=== PATIENT | male | born 1940 | race Caucasian/White ===

== ENCOUNTER 2017-05-25 06:36 | Day surgery (SDC) | payer MEDICARE, OTHER ==
[2017-05-25] MEDS ORDERED: ONDANSETRON HCL INJ/PF 4 MG/2 ML SDV ONE (07:13)
[2017-05-25] MEDS ORDERED: NALOXONE HCL INJ/PF 0.4 MG/1 ML SDV ONE (07:13)
[2017-05-25] MEDS ORDERED: GLUCAGON,HUMAN RECOMB 1 MG INJ ONE (07:14)
[2017-05-25] MEDS ORDERED: FLUMAZENIL INJ 0.5 MG/5 ML VIAL ONE (07:14)
[2017-05-25] MEDS ORDERED: EPINEPHRINE INJ 1 MG/10 ML DISP.SYRIN ONE (07:14)
[2017-05-25] MEDS: MIDAZOLAM 2 MG/2 ML INJ ONE ×3 (07:35→07:49)
[2017-05-25] MEDS: FENTANYL CITRATE INJ/PF 100 MCG/2 ML AMPUL ONE ×2 (07:36→07:39)
--- NOTE | 2017-05-25 08:27 | Operative Report ---
Operative Report DATE OF SURGERY: 05/25/17 PREOPERATIVE DIAGNOSIS: 1. Sigmoid diverticulosis disease. 2. History of colon polyps, remote POSTOPERATIVE DIAGNOSIS: Same with. 1. sigmoid diverticulosis. 2. multiple colon polyps including the sending colon, cecum, and splenic flexure. 3. Internal hemorrhoids OPERATION: 1. Total colonoscopy to cecum with photodocumentation. 2. Hot snare polypectomy of cecal and splenic flexure polyps. 3. Piecemeal cold forceps biopsy removal of ascending colon polyp SURGEON: ANNA MUJICA ANESTHESIA: Moderate Sedation TISSUE REMOVED OR ALTERED: Multiple polyps COMPLICATIONS: None ESTIMATED BLOOD LOSS: Scant INTRAOPERATIVE FINDINGS: See below PROCEDURE: Obtaining informed consent the patient was taken from the preoperative holding area to the main endoscopy suite where monitoring devices were attached to the patient. Plan and surgical timeout were conducted The patient was placed in the left lateral decubitus position with knees to chest. A perianal examination was performed. There was no visible or palpable anorectal pathology. Sphincter tone was felt to be normal. The flexible adult colonoscope was advanced through the anal rectal canal, all the way to the cecum. Visualization of the cecum was achieved and the ileocecal valve, the appendiceal orifice and transillumination of the anterior abdominal wall. This was an excellent study on the well-prepped bowel. There is a small punctate 2 mm polyp in the cecum which was removed using a hot snare device, medium heat with retention of the specimen. The colonoscope was withdrawn slowly and methodically checked and the mucosa carefully. There was a polyp in the ascending colon, very narrow, sessile, blending in with the surrounding mucosa. It was removed with the cold forceps biopsy in a piecemeal fashion and sent as a sending colon polyp. At about the level of the splenic flexure was a sessile polyp with some elevation approximately 4 mm in diameter photographed and removed with a hot snare device medium heat strength, specimen retrieved and polypectomy site stable without bleeding. There are moderate diverticular disease of the sigmoid colon. The scope was slowly withdrawn through the anal rectal canal. There were internal hemorrhoids nonthrombosed. Complete visualization of the rectum was achieved with photodocumentation. The scope was withdrawn to the patient's anus. The patient tolerated the procedure well and was taken to the recovery area in stable condition. Per surveillance guidelines, patient be an appropriate candidate for follow-up colonoscopy in 3 years, or sooner if symptoms develop
--- NOTE | 2017-05-25 08:31 | Discharge Summary ---
Discharge Summary (SDC) - Discharge Final Diagnosis: 1. Sigmoid diverticulosis 2. Internal hemorrhoids 3. Multiple colon polyps Date of Surgery: 05/25/17 Discharge Date: 05/25/17 Condition: Good Treatment or Instructions: [address] [address] POST ENDOSCOPY DISCHARGE INSTRUCTIONS 1. Diet: Start clear liquids that a regular diet as tolerated. 2. Resume all preoperative medications. All oral anticoagulants and aspirins can be resumed 24 hours after procedure. 3. If a polypectomy was performed some bleeding per rectum may occur. This should stop within 3 days. If not, please contact the office. 4. If you had a colonoscopy you may experience some bloating and delayed return of normal bowel function for several days, your regular bowel movement pattern should resume within a week. 5. Please contact [facility] at to make an appointment with Dr. Fried for 1 to 3 weeks following procedure. 6. If you have any questions or concerns regarding your care,treatment plan or follow up, please contact our office. 7. Per clinical guidelines we recommend you undergo a repeat colonoscopy in 3 years. Referrals: TIM MINOR MD [Primary Care Provider] - Discharge Diet: As Tolerated Discharge Activity: Activity As Tolerated Home Care Assistance: None Needed Report the Following to Your Physician Immediately: Shortness of Breath, Increase in Pain, Fever over 101 Degrees
[2017-05-25 09:13] VITALS: BP 134/70
== END 2017-05-25 09:15 | disposition home or self-care (01) ==
LOC: END 06:36
PROVIDERS: ATTEND Surgery
PROC: 0DBH8ZX Excision of Cecum, Via Natural or Artificial Opening Endoscopic, Diagnostic (ICD-10-PCS; 2017-05-25)
PROC: 0DBK8ZX Excision of Ascending Colon, Via Natural or Artificial Opening Endoscopic, Diagnostic (ICD-10-PCS; principal; 2017-05-25 07:30)
PROC: 0DBL8ZX Excision of Transverse Colon, Via Natural or Artificial Opening Endoscopic, Diagnostic (ICD-10-PCS; 2017-05-25 07:30)
DX: Z12.11 Encounter for screening for malignant neoplasm of colon (principal); D12.2 Benign neoplasm of ascending colon; D12.0 Benign neoplasm of cecum; K63.5 Polyp of colon; K57.30 Diverticulosis of large intestine without perforation or abscess without bleeding; K64.8 Other hemorrhoids; I49.9 Cardiac arrhythmia, unspecified; R10.31 Right lower quadrant pain; G89.29 Other chronic pain; Z87.891 Personal history of nicotine dependence; Z86.010 Personal history of colon polyps
CPT/HCPCS: 45380; 45385; 88305 ×2; J2250; J3010; J0171; J1610; J2310; J2405; J3490

== ENCOUNTER 2018-11-13 08:12 | Day surgery (SDC) | payer MEDICARE, OTHER ==
[~2018-11-13 08:12] MED LIST: BUPIVACAINE HCL 0.75% INJ/PF (7.5 MG/1 ML) 10 ML SDV OS PRN; KETOROLAC TROMETHAMINE 0.45% 4 DROP/0.4 ML DROPERETTE OS PRN; LIDOCAINE 4% INJ/PF (40 MG/ML) 5 ML AMPUL OS PRN; MIDAZOLAM 2 MG/2 ML INJ ONE
[2018-11-13] MEDS: BESIFLOXACIN HCL 0.6% OPH SUSP 5 ML BOTTLE OS PRN ×4 (09:14→10:23)
[2018-11-13] MEDS: CYCLOPENTOLATE 0.2%/PHENYLEPHRINE 1% OPH SOLN 2 ML OS PRN ×3 (09:14→09:34)
[2018-11-13] MEDS: TROPICAMIDE 1% OPH SOLN 3 ML OS PRN ×3 (09:14→09:34)
[2018-11-13] MEDS: TETRACAINE HCL 0.5% OPH SOLN 4 ML OS PRN ×3 (09:15→09:55)
[2018-11-13] MEDS: CHONDR SU A NA/HYALUR INTRAOC KIT (SURGICARE) ONE ×2 (10:09)
[2018-11-13] MEDS: EPINEPHRINE INJ/PF 1 MG/1 ML AMPULE ONE ×2 (10:09)
[2018-11-13] MEDS: LIDOCAINE 1% INJ-PF (10 MG/ML) 30 ML SDV ONE ×2 (10:09)
[2018-11-13] MEDS: DORZOLAMIDE HCL 2%/TIMOLOL MALEAT 0.5% OPH SOLN 10 ML OS PRN ×2 (10:23)
--- NOTE | 2018-11-13 14:08 | PDOC DISCHARGE SUMMARY ---
Discharge Summary[facility] Discharge Summary: DATE: 11/13/2018 FINAL DIAGNOSIS: CATARACT, LEFT EYE PROCEDURE: Cataract extraction with toric intraocular lens implant left eye HOSPITAL COURSE: The patient will be discharged to home. The patient is instructed to resume preoperative medications, take Tylenol as needed for discomfort, to keep the eye shielded, They should use the prescribed antibiotic, NSAID, and steroid at 3 PM and 8 PM, and to follow up in my office in 1 day.
--- NOTE | 2018-11-13 14:08 | Operative Report ---
Operative Report[facility] Operative Report: DATE OF SURGERY: 11/13/2018 PREOPERATIVE DIAGNOSIS: CATARACT, LEFT EYE. POSTOPERATIVE DIAGNOSIS: CATARACT, LEFT EYE. PROCEDURE PERFORMED: PHACOEMULSIFICATION WITH POSTERIOR CHAMBER INTRAOCULAR LENS, LEFT EYE. Intraocular Lens Model : S N 6AT3 20.5 Total Phaco Time: [] SURGEON: OUSMANE OLIVAS MD ANESTHESIA: TOPICAL WITH MAC. INDICATIONS FOR SURGERY: Difficulty with night driving PROCEDURE: The patient was brought to the Operating Room and placed in a seated position. a lid speculum was placed in the eye. the 0.180, and 270 degree axis of the cornea was marked with a toric marker. the patien was place in a reclining position. Following tetracaine drops, topical anesthesia was administered. This consisted of instrument wipe pledgets soaked in a solution of 4% Xylocaine mixed with 0.75% Marcaine in a 1:2 ratio. A 2 x 1 cm pledget was placed in the superior fornix. A 1 x 1 cm pledget was placed in the inferior fornix. The eye was patched shut for 5 minutes. The patch was removed. The eye was sterilely prepped and draped in the usual manner. Lid speculum was placed in the eye. The pledgets were removed. 4-0 black silk sutures were placed around the superior and the inferior rectus muscles to be used as traction. A conjunctival peritomy was made at the 10 o'clock position. Hemostasis was obtained with bipolar cautery. A posterior limbal groove was created using a crescent knife and dissected anteriorly towards the cornea. A sharp point blade was used to create a paracentesis site at the 2 o'clock position. 0.2 cc non preserved Lidocaine was injected into the anterior chamber. A 2.4 mm keratome was used to enter the anterior chamber through the groove. Viscoelastic was injected into the anteriorchamber. An anterior capsulotomy was performed using Utrata forceps in acapsulorrhexis fashion. Hydrodissection and hydrodelineation were performed. Phacoemulsification was performed in epycnt-nyv-msgauen technique. Following this, the I/A unit was used to remove residual cortex. Viscoelastic was injected into the capsular bag. The Intraocular lens was placed in the capsular bag. The 163 degree axis of the eye was marked using a toric marker and the previously marked sites as reference. The lens was centered at this axis. The I/A unit was used to remove residual viscoelastic. The wound was seen to be watertight under high and low pressure, and no sutures were placed. The intraocular lens was well centered. The pressure was adjusted in the eye to normal pressure. The 4-0 black silk sutures and lid speculum were removed. The eye was shielded after Besivance and Cosopt drops were placed. The patient tolerated the procedure well and was sent to the Recovery Room in good condition.
== END 2018-11-13 10:59 | disposition home or self-care (01) ==
LOC: SC 08:12
PROVIDERS: ATTEND Ophthalmology
DX: H25.813 Combined forms of age-related cataract, bilateral (principal); I10 Essential (primary) hypertension; H43.813 Vitreous degeneration, bilateral
CPT/HCPCS: 66984; J2250; J3490 ×5; A9270; J0171; V2787

== ENCOUNTER 2018-12-04 09:17 | Day surgery (SDC) | payer MEDICARE, OTHER ==
[~2018-12-04 09:17] MED LIST changes: +BUPIVACAINE HCL 0.75% INJ/PF (7.5 MG/1 ML) 10 ML SDV OD PRN; -BUPIVACAINE HCL 0.75% INJ/PF (7.5 MG/1 ML) 10 ML SDV OS PRN; +CHONDR SU A NA/HYALUR INTRAOC KIT (SURGICARE) ONE; +EPINEPHRINE INJ/PF 1 MG/1 ML AMPULE ONE; +KETOROLAC TROMETHAMINE 0.45% 4 DROP/0.4 ML DROPERETTE OD PRN; -KETOROLAC TROMETHAMINE 0.45% 4 DROP/0.4 ML DROPERETTE OS PRN; +LIDOCAINE 1% INJ-PF (10 MG/ML) 30 ML SDV ONE; +LIDOCAINE 4% INJ/PF (40 MG/ML) 5 ML AMPUL OD PRN; -LIDOCAINE 4% INJ/PF (40 MG/ML) 5 ML AMPUL OS PRN; -MIDAZOLAM 2 MG/2 ML INJ ONE
[2018-12-04] MEDS ORDERED: ONDANSETRON HCL INJ/PF 4 MG/2 ML SDV ONE (09:37)
[2018-12-04] MEDS ORDERED: MIDAZOLAM 2 MG/2 ML INJ ONE (09:37)
[2018-12-04] MEDS ORDERED: FENTANYL CITRATE INJ/PF 100 MCG/2 ML AMPUL ONE (09:38)
[2018-12-04] MEDS: TROPICAMIDE 1% OPH SOLN 15 ML OD PRN ×3 (10:04→10:28)
[2018-12-04] MEDS: CYCLOPENTOLATE 0.2%/PHENYLEPHRINE 1% OPH SOLN 2 ML OD PRN ×3 (10:04→10:28)
[2018-12-04] MEDS: BESIFLOXACIN HCL 0.6% OPH SUSP 5 ML BOTTLE OD PRN ×4 (10:05→11:21)
[2018-12-04] MEDS: TETRACAINE HCL 0.5% OPH SOLN 4 ML OD PRN ×2 (10:06→10:29)
[2018-12-04] MEDS: DORZOLAMIDE HCL 2%/TIMOLOL MALEAT 0.5% OPH SOLN 10 ML OD PRN ×2 (11:09→11:21)
--- NOTE | 2018-12-04 13:43 | Operative Report ---
Operative Report[facility] Operative Report: DATE OF SURGERY: 12/04/2018 PREOPERATIVE DIAGNOSIS: CATARACT, RIGHT EYE. POSTOPERATIVE DIAGNOSIS: CATARACT,RIGHT EYE. PROCEDURE PERFORMED: PHACOEMULSIFICATION WITH POSTERIOR CHAMBER INTRAOCULAR LENS, RIGHT EYE. Intraocular Lens Model : SN 6AT5 20.5 Total Phaco Time: 44 seconds SURGEON: OUSMANE OLIVAS MD ANESTHESIA: TOPICAL WITH MAC. INDICATIONS FOR SURGERY: Difficulty with night driving PROCEDURE: The patient was brought to the Operating Room and placed in a seated position. a lid speculum was placed in the eye. the 0.180, and 270 degree axis of the cornea was marked with a toric marker. the patien was place in a reclining position. Following tetracaine drops, topical anesthesia was administered. This consisted of instrument wipe pledgets soaked in a solution of 4% Xylocaine mixed with 0.75% Marcaine in a 1:2 ratio. A 2 x 1 cm pledget was placed in the superior fornix. A 1 x 1 cm pledget was placed in the inferior fornix. The eye was patched shut for 5 minutes. The patch was removed. The eye was sterilely prepped and draped in the usual manner. Lid speculum was placed in the eye. The pledgets were removed. 4-0 black silk sutures were placed around the superior and the inferior rectus muscles to be used as traction. A conjunctival peritomy was made at the 10 o'clock position. Hemostasis was obtained with bipolar cautery. A posterior limbal groove was created using a crescent knife and dissected anteriorly towards the cornea. A sharp point blade was used to create a paracentesis site at the 2 o'clock position. 0.2 cc non preserved Lidocaine was injected into the anterior chamber. A 2.4 mm keratome was used to enter the anterior chamber through the groove. Viscoelastic was injected into the anteriorchamber. An anterior capsulotomy was performed using Utrata forceps in acapsulorrhexis fashion. Hydrodissection and hydrodelineation were performed. Phacoemulsification was performed in gxjvva-hgu-zkslyrp technique. Following this, the I/A unit was used to remove residual cortex. Viscoelastic was injected into the capsular bag. The Intraocular lens was placed in the capsular bag. The 7 degree axis of the eye was marked using a toric marker and the previously marked sites as reference. The lens was centered at this axis. The I/A unit was used to remove residual viscoelastic. The wound was seen to be watertight under high and low pressure, and no sutures were placed. The intraocular lens was well centered. The pressure was adjusted in the eye to normal pressure. The 4-0 black silk sutures and lid speculum were removed. The eye was shielded after Besivance and Cosopt drops were placed. The patient tolerated the procedure well and was sent to the Recovery Room in good condition.
== END 2018-12-04 12:00 | disposition home or self-care (01) ==
LOC: SC 09:17
PROVIDERS: ATTEND Ophthalmology
DX: H25.811 Combined forms of age-related cataract, right eye (principal); Z96.1 Presence of intraocular lens; I10 Essential (primary) hypertension; Z79.899 Other long term (current) drug therapy
CPT/HCPCS: 00142; 66984; V2787; J2250; J3490 ×5; A9270; J0171; J3010; J2405; 142

== ENCOUNTER 2019-10-16 08:23 | Observation (INO) | payer MEDICARE, OTHER ==
--- NOTE | 2019-10-16 08:40 | EKG REPORT ---
SEVERITY:- ABNORMAL ECG - SINUS RHYTHM FIRST DEGREE AV BLOCK : Confirmed by: Kaylen Serrano MD 16-Oct-2019 08:39:49
[2019-10-16 08:48] LABS: INTERNATIONAL RATION (INR) 1.05; PARTIAL THROMBOPLASTIN TIME 28.2 SEC (23.5-35.8)
[2019-10-16 08:50] LABS: PROTHROMBIN TIME 13.7 SEC (11.4-15.4)
[2019-10-16 08:53] LABS: ABSOLUTE EOSINOPHILS # (AUTO) 0.1 10^3/uL (0.0-0.6); ABSOLUTE LYMPHOCYTES (AUTO) 1.1 10^3/uL (0.5-4.7); ABSOLUTE MONOCYTES (AUTO) 0.6 10^3/uL (0.1-1.4); ABSOLUTE NEUT (AUTO) 2.7 10^3/uL (1.7-8.2); BASOPHILS % (AUTO) 0.7 % (0-2); EOSINOPHILS % (AUTO) 2.8 % (0-6); HEMATOCRIT 48.2 % (37.9-51.0); HEMOGLOBIN 16.2 g/dL (13.5-17.0); LYMPHOCYTES % (AUTO) 25.2 % (13-45); MEAN CORPUSCULAR HEMOGLOBIN 28.8 pg (27.0-33.4); MEAN CORPUSCULAR HGB CONC 33.6 g/dL (32.0-36.0); MEAN CORPUSCULAR VOLUME 86 fl (80-97); MONOCYTES % (AUTO) 12.2 % (3-13); RED BLOOD COUNT 5.62 10^6/uL (4.35-5.55); RED CELL DISTRIBUTION WIDTH 14.6 % (11.5-14.0); SEGMENTED NEUTROPHILS % (AUTO) 59.1 % (42-78); TOTAL CELLS COUNTED % (AUTO) 100 %; WHITE BLOOD COUNT 4.5 10^3/uL (4.0-10.5)
[2019-10-16 09:03] LABS: ALBUMIN 4.3 g/dL (3.5-5.0); ALKALINE PHOSPHATASE 82 U/L (38-126); ANION GAP 7 (5-19); ASPARTATE AMINO TRANSFERASE 22 U/L (17-59); BLOOD UREA NITROGEN 25 mg/dL (7-20); CALCIUM 9.8 mg/dL (8.4-10.2); CARBON DIOXIDE 25 mmol/L (22-30); CHLORIDE 105 mmol/L (98-107); CREATINE KINASE 89 U/L (55-170); GLUCOSE 112 mg/dL (75-110); POTASSIUM 4.2 mmol/L (3.6-5.0); TOTAL PROTEIN 7.2 g/dL (6.3-8.2)
--- NOTE | 2019-10-16 09:03 | RADIOLOGY REPORT (SQ) ---
EXAM DESCRIPTION: CHEST SINGLE VIEW IMAGES COMPLETED DATE/TIME: 10/16/2019 8:55 am REASON FOR STUDY: stroke workup COMPARISON: None. EXAM PARAMETERS: NUMBER OF VIEWS: One view. TECHNIQUE: Single frontal radiographic view of the chest acquired. RADIATION DOSE: NA LIMITATIONS: None. FINDINGS: LUNGS AND PLEURA: No opacities, masses or pneumothorax. No pleural effusion. MEDIASTINUM AND HILAR STRUCTURES: No masses. Contour normal. HEART AND VASCULAR STRUCTURES: Heart normal in size. Normal vasculature. BONES: No acute findings. HARDWARE: None in the chest. OTHER: No other significant finding. IMPRESSION: NO ACUTE RADIOGRAPHIC FINDING IN THE CHEST. TECHNICAL DOCUMENTATION: JOB ID: [id number] 2010 [employer]- All Rights Reserved Reading location - IP/workstation name: [email or web address]
--- NOTE | 2019-10-16 09:04 | RADIOLOGY REPORT (SQ) ---
EXAM DESCRIPTION: CT HEAD WITHOUT IMAGES COMPLETED DATE/TIME: 10/16/2019 8:48 am REASON FOR STUDY: right arm clumbsy COMPARISON: None. TECHNIQUE: Axial images acquired through the brain without intravenous contrast. Images reviewed wi th bone, brain and subdural windows. Additional sagittal and coronal reconstructions were generated. Images stored on PACS. All CT scanners at this facility use dose modulation, iterative reconstruction, and/or weight based d osing when appropriate to reduce radiation dose to as low as reasonably achievable (ALARA). [facility]: Dose Right [facility]: CareDose [facility]: Dose Right [facility]: Teradose 4D [facility]: [employer] RADIATION DOSE: CT Rad equipment meets quality standard of care and radiation dose reduction techniq ues were employed. CTDIvol: 48.6 mGy. DLP: 930 mGy-cm. mGy. LIMITATIONS: None. FINDINGS: VENTRICLES: Normal size and contour. CEREBRUM: No intracranial hemorrhage. Subtle hypoattenuation within the left basal ganglia and insul a. More focal areas of hypodensity within the left caudate head and thalamus. No significant mass e ffect or midline shift. Remaining arevalo-white differentiation is preserved. There is questionable hyp erdense left MCA sign CEREBELLUM: No masses. No hemorrhage. No alteration of density. No evidence for acute infarction. EXTRAAXIAL SPACES: No fluid collections. No masses. ORBITS AND GLOBE: No intra- or extraconal masses. Normal contour of globe without masses. CALVARIUM: No fracture. PARANASAL SINUSES: Minimal mucosal thickening within the ethmoid air cells. No fluid or mucosal thi ckening. SOFT TISSUES: No mass or hematoma. OTHER: No other significant finding. IMPRESSION: Subtle areas of hypoattenuation involving the left basal ganglia and insula suggestive o f infarct. Questionable dense left MCA sign. Consider MRI for further characterization. EVIDENCE OF ACUTE STROKE: YES. LEFT MCA. COMMENT: Pertinent positive or negative findings of the imaging study reported as a CRITICAL EXAM t harsh TRENT MD at08:56 on 10/16/2019. Category of Critical Exam: Age-indeterminate infarct. Quality ID # 436: Final reports with documentation of one or more dose reduction techniques (e.g., Au tomated exposure control, adjustment of the mA and/or kV according to patient size, use of iterative reconstruction technique) TECHNICAL DOCUMENTATION: JOB ID: [id number] [employer]- All Rights Reserved Reading location - IP/workstation name: [email or web address]
--- NOTE | 2019-10-16 09:11 | ER Document Report ---
Entered by BERT HIGUERA SCRIBE 10/16/19 0902 Acting as scribe for:VINH TRENT MD ED Neuro Symptoms/Deficit - General Chief Complaint: Arm Pain Stated Complaint: ARM PAIN Time Seen by Provider: 10/16/19 08:26 Mode of Arrival: Medic Information source: Patient Notes: This 79-year-old male patient presents to the emergency department today complaining that his right arm feels "clumsy" which he states began between 6:00 AM and 6:30 AM this morning. Patient states he woke up at 3:00 AM this morning but this sensation was not present at that time. Patient states when the sensation began he was sitting in a chair. In an attempt to further clarify what the patient meant by "clumsy" he reports that it was "not numb, just felt funny". at bedside mentions that he was unable to sign his name for EMS. Eventually patient is able to state that he is having difficulty with fine motor skills. TRAVEL OUTSIDE OF THE [place] 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 Bilateral cataract repair. - Immunizations Hx Diphtheria, Pertussis, Tetanus Vaccination: No - UNK Hx Pneumococcal Vaccination: 03/20/10 Review of Systems - Review of Systems Constitutional: No symptoms reported EENT: No symptoms reported Cardiovascular: No symptoms reported Respiratory: No symptoms reported Gastrointestinal: No symptoms reported Genitourinary: No symptoms reported Male Genitourinary: No symptoms reported Musculoskeletal: No symptoms reported Skin: No symptoms reported Hematologic/Lymphatic: No symptoms reported Neurological/Psychological: Other - right arm "felt funny" which he further describes as difficulty with fine motor skills. denies: Numbness, Tingling -: Yes All other systems reviewed and negative Physical Exam - Vital signs Vitals: Temp BP Pulse Ox 98.1 F 142/69 H 96 10/16/19 08:26 10/16/19 08:26 10/16/19 08:26 - Notes Notes: Physical Exam: General: Alert, appears well. HEENT: Normocephalic. Atraumatic. PERRL. Extraocular movements intact. Oropharynx clear. Neck: Supple. Non-tender. No carotid bruits. Respiratory: No respiratory distress. Clear and equal breath sounds bilaterally. Cardiovascular: Regular rate and rhythm. Abdominal: Normal Inspection. Non-tender. No distension. Normal Bowel Sounds. Back: No gross abnormalities. Extremities: Moves all four extremities. Upper extremities: Normal inspection. Normal ROM. Lower extremities: Normal inspection. No edema. Normal ROM. Neurological: Normal cognition. Normal speech. Maacix-yr-chku test intact on the left. Past-pointing with rwrycn-xf-ezjk test on the right side. Cranial nerves II through XII were intact with normal eye motion, normal tongue protrusion, symmetrical smiling. There was no weakness to the lower extremities, or ataxia. There was no weakness to the upper extremities, although there was very slight ataxia to the right upper extremity. There was no sensory deficit to any of the extremities. Psychological: Normal affect. Normal Mood. Skin: Warm. Dry. Normal color. Course - Re-evaluation Re-evalutation: 10/16/19 12:06 The patient's only neurologic symptom was the loss of fine coordination to his right upper extremity. The MRI showed acute or subacute injury in the left anterior cerebral artery distribution. There was also suggestion of old infarct in the left side. After the patient returned from MRI, he was reevaluated and he stated that it felt like his hand coordination was improving and was not quite back to normal but was better than it had been previously. The MRI findings, were discussed with the patient and his spouse. The risk benefits of TPA were discussed including up to 6% chance of intracranial hemorrhage. Given the minimal symptoms he still is having, and the amount of improvement that has occurred, the patient and spouse agreed to not use TPA. 10/16/19 12:15 After the admission was started, the informed the nurse that they had spoken with their parcel post carrier at [facility] and wanted to be transferred to [facility]. I called the [facility] transfer line and informed them of the requests. They were going to contact the patient's parcel post carrier for clarification and get back to me. 10/16/19 14:02 Dr. Pierce from [facility] called back and discussed case. She felt it was a lateral move in there with nothing they could offer her that was not available at this facility. Additionally there were several transfers ahead of this one that had not received bed assignment yet. Due to all of these issues, she declined the transfer. - Vital Signs Vital signs: Temp Pulse Resp BP Pulse Ox 98.1 F 54 L 15 136/52 H 98 10/16/19 08:26 10/16/19 17:31 10/16/19 17:31 10/16/19 17:31 10/16/19 17:31 - Laboratory Result Diagrams: 10/16/19 08:34 10/16/19 08:34 Laboratory results interpreted by me: 10/16/19 10/16/19 08:34 08:34 RBC 5.62 H RDW 14.6 H Plt Count 95 L BUN 25 H Est GFR (MDRD) Non-Af 57 L Glucose 112 H - Diagnostic Test Radiology reviewed: Image reviewed, Reports reviewed - CT scan of the head shows subtle areas of hypoattenuation involving the left basal ganglia and insula suggestive of infarct. There is a questionable dense left MCA sign. Consider MRI for further characterization. MRI of the head showed a small foci of restricted diffusion within the subcortical white matter of the left parieto- occipital parenchyma consistent with acute to subacute ischemic injury in the left anterior cerebral artery territory. The left precentral gyrus subcortical T2 prolongation is consistent with sequelae of previous ischemic injury. Otherwise normal appearance of the brain. - EKG Interpretation by Me EKG shows normal: Sinus rhythm, Delta, Intervals, QRS Complexes, ST-T Waves Rate: Normal - 57 Heart block present: 1st Degree When compared to previous EKG there are: No significant change - Consults Dr. Islas Consulted provider: will come to ER - IMCU admit, Plavix and Aspirin Critical Care Note - Critical Care Note Total time excluding time spent on procedures (mins): 40 Comments: At least 40 minutes spent evaluating the patient and multiple repeat examinations. Reviewing lab work, past medical history, CT scan and then MRI recommendations. Reviewing MRI scan results and discussing with the on-call hospitalist on 2 separate occasions. Time spent discussing the case with the family and the risks and benefits of TPA. Later considerable time spent on admission/management of the patient as they were requesting to go to [facility], and were inferring that his parcel post carrier wanted him transferred there. This turned out not to be true. I did discuss the case with the hospitalist at [facility] and she declined to accept a lateral transfer for management that could be provided at this facility. Discharge - Discharge Clinical Impression: Acute CVA (cerebrovascular accident) Condition: Stable Disposition: ADMITTED INPATIENT Admitting Provider: Janel (Hospitalist) Unit Admitted: IMCU I personally performed the services described in the documentation, reviewed and edited the documentation which was dictated to the scribe in my presence, and it accurately records my words and actions.
[2019-10-16 09:12] LABS: PLATELET COUNT 95 10^3/uL (150-450)
--- NOTE | 2019-10-16 10:50 | RADIOLOGY REPORT (SQ) ---
EXAM DESCRIPTION: MRI HEAD WITHOUT IMAGES COMPLETED DATE/TIME: 10/16/2019 10:30 am REASON FOR STUDY: right arm clumbsy, CT suggests L MCA COMPARISON: Noncontrast head CT 10/16/2019 TECHNIQUE: Multiplanar imaging includes non-contrasted T1, T2, FLAIR, and diffusion with ADC map seq uences. Images stored on PACS. LIMITATIONS: None. FINDINGS: ANATOMY: No anomalies. Normal vascular flow voids. Pituitary fossa normal. CSF SPACES: Normal in size and contour. No hemorrhage. CEREBRUM: The sulci and gyri are normal in size and contour for age. Subcortical T2 prolongation is seen within the left precentral gyrus, consistent with sequela of previous ischemic injury. Few scat tered foci of T2 prolongation seen within the white matter are nonspecific, but may represent sequela of microvascular ischemic injury. Scattered foci of subcortical restricted diffusion with associate d faint T2 prolongation on FLAIR imaging is seen of the left parietooccipital lobe in a left anterior cerebral artery distribution. Incidental note is made of prominent per caliber been perivascular sp aces within the basal ganglia. POSTERIOR FOSSA: No signal alteration. No hemorrhage. No edema, masses or mass effect. Internal amrita tory canals, cerebello-pontine angles, mastoids normal. DIFFUSION IMAGING: As above. ORBITS: No masses. Globes normal. PARANASAL SINUSES: No fluid levels. Mucosa normal. OTHER: No other significant finding. IMPRESSION: Given faint correlative signal abnormality on FLAIR imaging, small foci of restricted di ffusion seen within the subcortical white matter of the left parietooccipital parenchyma is consisten t with acute to subacute ischemic injury in the left anterior cerebral artery territory. Left precen tral gyrus subcortical T2 prolongation is consistent with sequela of previous ischemic injury. Other blank normal appearance of the brain. EVIDENCE OF ACUTE STROKE: YES. LEFT ROSANNA TECHNICAL DOCUMENTATION: JOB ID: [id number] 2010 [employer]- All Rights Reserved Reading location - IP/workstation name: [email or web address]
[2019-10-16 11:11] LABS: APPEARANCE,URINE SLIGHTLY-CLOUDY; BILIRUBIN,URINE NEGATIVE (NEGATIVE); COLOR,URINE STRAW; GLUCOSE, URINE NEGATIVE (NEGATIVE); KETONES,URINE NEGATIVE (NEGATIVE); LEUKOCYTE ESTERASE,URINE NEGATIVE (NEGATIVE); NITRITE,URINE NEGATIVE (NEGATIVE); PROTEIN,URINE NEGATIVE (NEGATIVE); URINE SPECIFIC GRAVITY 1.008; UROBILINOGEN,URINE NEGATIVE mg/dL (<2.0)
--- NOTE | 2019-10-16 11:11 | ER Document Report ---
ED NIH Stroke Scale - NIH Stroke Scale *: 1. NIH scale should be completed with appropriate accompanying assessment tools. *: 2. The NIH should reflect what the patient is capable of doing and should not be coached by the clinician. 1a. Level of Consciousness: 0=Alert;keenly responsive -: 1=Drowsy -: 2=Obtunded -: 3=Coma/unresponsive or reflex to noxious stimuli. 1a. Responses: 0 1b. Orientation Questions: a. What month is it? -: b. How old are you? -: 0=Answers both questions correctly. -: 1=Answers one question correctly or patient is intubated or has orotracheal trauma. -: 2=Answers neither question correctly. 1b. Responses: 0 1c. Response to commands: a. Open and close eyes? -: b. Quality Assurance Director and release hand? -: Credit is given despite weakness. Demonstration of task is permitted. Substitute command if hands cannot be used. -: 0=Performs both tasks correctly -: 1=Performs one task correctly -: 2=Performs neither task correctly 1c. Responses: 0 2. Gaze: Establish eye contact and instruct patient to "Follow my finger" -: 0=Normal -: 1=Partial gaze palsy. Gaze is abnormal in one or both eyes, but where forced deviation or total gaze paresis is not present. -: 2=Forced deviation or total gaze paresis. 2. Responses: 0 3. Visual Kim: Sees fingers in all four quadrants. -: 0=No visual loss. -: 1=Partial hemianopsia. -: 2=Complete hemianopsia. -: 3=Bilateral hemianopsia (including Cortical blindness) 3. Responses: 0 4. Facial Movement: Instruct patient to: -: a. Show me your teeth -: b. Raise your eyebrows -: c. Close your eyes -: d. Smile -: 0=Normal symmetrical movement -: 1=Minor paralysis (flattened nasolabial fold, asymmetry on smiling). -: 2=Partial paralysis (total or near total paralysis of lower face). -: 3=Complete paralysis of upper and lower face 4. Responses: 0 5. Motor functions (left arm): Alternate sides and extend each arm with palms down (90 degrees if sitting or 45 degrees for supine). -: 0=No drift;limb holds for full 10 seconds. -: 1=Drift; limb holds but drifts down before full 10 seconds, but does not hit bed. -: 2=Some effort against gravity; limb cannot get to or maintain position. -: 3=No effort against gravity; limb falls. -: 4=No movement. -: UN=Amputation, joint fusion, explain in comments. 5. Responses (left arm): 0 5. Motor Functions (right arm): Alternate sides and extend each arm with palms down (90 degrees if sitting or 45 degrees for supine). -: 0=No drift;limb holds for full 10 seconds. -: 1=Drift; limb holds but drifts down before full 10 seconds, but does not hit bed. -: 2=Some effort against gravity; limb cannot get to or maintain position. -: 3=No effort against gravity; limb falls. -: 4=No movement. -: UN=Amputation, joint fusion, explain in comments. 5. Responses (right arm): 0 6. Motor Functions (left leg): With patient lying supine, alternate sides and extend each leg (30 degrees always while supine). -: 0=No drift, leg holds position for full 5 seconds -: 1=Drift; leg falls before full 5 seconds but does not hit bed. -: 2=Some effort against gravity, leg falls to bed but some effort against gravity. -: 3=No effort against gravity, leg falls to bed immediately. -: 4=No movement. -: UN=Amputation, joint fusion; explain in comments. 6. Responses (left leg): 0 6. Motor Functions (right leg): With patient lying supine, alternate sides and extend each leg (30 degrees always while supine). -: 0=No drift, leg holds position for full 5 seconds -: 1=Drift; leg falls before full 5 seconds but does not hit bed. -: 2=Some effort against gravity, leg falls to bed but some effort against gravity. -: 3=No effort against gravity, leg falls to bed immediately. -: 4=No movement. -: UN=Amputation, joint fusion; explain in comments. 6. Responses (right leg): 0 7. Limb Ataxia: With eyes open instruct patient to: -: a. "Touch your finger to your nose". -: b. "Touch your heel to your pandya" -: 0=Absent -: 1=Present in one limb. -: 2=Present in two limbs. -: UN=Amputation or joint fusion; explain in comments. 7. Responses: 1 7. If ataxia present choose as appropriate: Right arm 8. Sensory: Test sensation using pinprick or noxious stimuli. Test as many body parts as possible. -: 0=Normal;no sensory loss -: 1=Mile to moderate sensory loss (patient feels pin prick but is less sharp on affected side). -: 2=Severe or total sensory loss. 8. Responses: 0 9. Best Language: Instruct patient to: -: a. "Describe what you see in this picture." -: b. "Name the items in this picture." -: c. "Read these sentences." -: 0=No aphasia, normal -: 1=Mild to moderate aphasia. -: 2=Severe aphasia -: 3=Mute, global aphasia, no usable speech or auditory comprehension. 9. Responses: 0 10. Articulation, Dysarthia: Instruct patient to: -: "Read these words" or "Repeat these words" -: 0=Normal -: 1=Mild to moderate; patient may slur some words but can be understood without difficulty. -: 2=Severe; patients speech so slurred as to be unintelligible in the absence of dysphasia. -: UN=Intubated or other physical barrier, explain in comments. 10. Responses: 0 11. Extinction or inattention: 0=No abnormality -: 1= Visual, tactile, auditory, spatial, or personal inattention or extinction to bilateral simulation in one or the sensory modalities. -: 2=Profound indra-inattention or indra-inattention to more than one modality; does not recognize own hand. 11. Responses: 0 Total Score: 1
[2019-10-16] MEDS ORDERED: ASPIRIN 81 MG TABLET, CHEWABLE PO ONE (11:21)
[2019-10-16] MEDS ORDERED: CLOPIDOGREL BISULFATE 75 MG TABLET PO ONE (11:21)
--- NOTE | 2019-10-16 12:06 | ER Document Report ---
ED Alteplase Inc/Exc Criteria - Inclusion Criteria: 1: Patient presented to ED within 3 hours of acute ischemic stroke symptom onset? -: Yes 2: Did baseline CT exclude intracranial hemorrhage and/or other risk factors? -: Yes 3: Is the age of the patient 18 years of age or greater? -: Yes : If any of the above questions are answered "NO" then stop, patient is not a candidate for Alteplase, : If all of the above questions are answered "YES" then continue with Exclusion Criteria. - Exclusion Criteria: 1: Is there evidence of intracranial hemorrhage on baseline CT? -: No 2: Is there suspicion of subarachnoid hemorrhage (even if CT negative)? -: No 3: Is there a history of serious head trauma, recent previous stroke or MN within 3 months? -: No 4: Does the patient have a clinical presentation consistent with MN or post-MN pericarditis? -: No 5: Is there history of intracranial hemorrhage? -: No 6: On repeated measurement is Systolic BP greater than 185mmHg or Diastolic BP greater that 110 mmHg and is aggressive treatment needed to reduce blood pressure to these limits (e.g. constant infusion of an anti-hypertensive)? -: No 7: Did the patient awake with stroke symptoms? -: No 8: Has the patient had a lumbar puncture or an arterial puncture at a non- compressile site within 7 days? -: No 9: With in the last 14 days did the patient have surgery or major trauma? -: No 10: Is the patient or less than 2 weeks? -: No 11: Was there any active bleeding or acute trauma? -: No 12: Does the patient have intracranial neoplasm, arteriovenous malformation or aneurysm? -: No 13: Does the patient have abnormal glucose (less than 50 or greater than 400mg/dl)? Record glucose in Comment. -: No 14: Patient has rapidly improving symptoms at the time Alteplase is to be Administered. -: Yes 15: Does the patient have any risks for bleeding, including but not limited to: a.: Current use of Coumadin with PT greater than 15 seconds or INR greater than 1.7. b.: Current use of Pradaxa (Dabigatran). c.: Heparin administereed within the past 48 hours and PTT elevated. d.: Platelet count less than 100,000/mm. e.: Major surgery or serious trauma within 14 days. f.: Gastrointestinal or gynecological urinary bleeding within 14 days. g.: Myocardial Infarction (MN) within 3 months. -: No : If the answer to any of the above questions is "YES" then stop, the patient is not a candidate for Alteplase. : If the answer to all of the above questions is "NO" then the patient may be eligible for the Administration of Alteplase. : If the patient is noted to have seizure activity at onset of Stroke symptoms; Consult Neurologist for further evaluation. - The patient is: -: Included and is eligible to receive Alteplase. *Initiate bed placement at higher level of care* --: No Reviewed risks & benefits of thrombolytic therapy: I have reviewed the risks and benefits of thrombolytic therapy with the patient and/or his/her family. Yes -: Excluded and not eligible to receive Alteplase for the above exclusions. --: Yes -: Excluded and not eligible to receive Alteplase for other reasons (specify in comments): - Diagnosis of TIA: -: Patient presented with transient symptoms that are now resolved and no other neurologic findings are currently present. List symptoms in comments. -: Patient is NOT a candidate for tPA. -: ____(put name in comment) has been consulted for admission and continued evaluation of risk factor assessment.
[2019-10-16] MEDS ORDERED: ONDANSETRON HCL INJ/PF 4 MG/2 ML SDV IV PRN (15:50)
[2019-10-16] MEDS ORDERED: ACETAMINOPHEN 325 MG TABLET PO PRN (15:50)
--- NOTE | 2019-10-16 16:16 | PDOC H&P ---
History of Present Illness Admission Date/PCP: 10/16/19 11:44 TIM MINOR MD Patient complains of: Discoordination of right hand History of Present Illness: DAREK MELLO is a 79 year old male with a history of hypertension and " irregular heart rhythm", who presents to the hospital with complaints of right- hand ataxia which started this morning around 6 AM. He had no other symptoms besides this. He denied any visual deficits, slurred speech, or other weakness in his extremities. He also denies any history of previous strokes. In the ER, head CT scan was unremarkable but MRI of the brain revealed acute CVA. Was evaluated by the ER doctor and patient declined TPA after receiving explanation of risks and benefits from the ER physician. NIH score on presentation was 1. Currently being admitted for work-up of CVA. Past Medical History Cardiac Medical History: Reports: Hypertension - CONTROLLED/MEDICATED Denies: Coronary Artery Disease, Myocardial Infarction Pulmonary Medical History: Denies: Asthma, Bronchitis, Chronic Obstructive Pulmonary Disease (COPD), Pneumonia Neurological Medical History: Denies: Seizures Malignancy Medical History: Reports: Skin Cancer - Squamous cell GI Medical History: Denies: Hepatitis, Hiatal Hernia Musculoskeltal Medical History: Denies: Arthritis Hematology: Denies: Anemia, Sickle Cell Disease Past Surgical History Past Surgical History: Reports: Other - Multiple squamous cell lesions removed. Bilateral cataract repair. Denies: Pacemaker Social History Lives with: Spouse/Significant other Smoking Status: Never Smoker Frequency of Alcohol Use: Social Hx Recreational Drug Use: No - Advance Directive Resuscitation Status: Full Code Family History Family History: Hypertension Parental Family History Reviewed: Yes Children Family History Reviewed: NA Sibling(s) Family History Reviewed.: Yes Medication/Allergy Home Medications: Diltiazem HCl [Cardizem Cd 240 mg Capsule.cr] 180 cap PO DAILY 05/12/14 Lisinopril/Hydrochlorothiazide [Lisinopril-Hctz 10-12.5 mg Tab] 1 each PO DAILY 10/16/19 Allergies/Adverse Reactions: No Known Allergies Allergy (Verified 11/13/18 09:18) Review of Systems Constitutional: ABSENT: fever(s), headache(s) Eyes: ABSENT: visual disturbances Ears: ABSENT: hearing changes Nose, Mouth, and Throat: ABSENT: headache(s) Cardiovascular: ABSENT: palpitations Respiratory: ABSENT: dyspnea Gastrointestinal: ABSENT: abdominal pain, nausea, vomiting Genitourinary: ABSENT: difficulty urinating, dysuria Integumentary: ABSENT: diaphoresis Neurological: PRESENT: lack of coordination. ABSENT: abnormal gait, abnormal speech, confusion, dizziness, paresthesias, tingling Endocrine: ABSENT: polyuria Hematologic/Lymphatic: ABSENT: easy bleeding Allergic/Immunologic: ABSENT: seasonal rhinorrhea Physical Exam Vital Signs: Temp Pulse Resp BP Pulse Ox 98.1 F 55 L 22 H 135/62 H 98 10/16/19 08:26 10/16/19 09:17 10/16/19 15:31 10/16/19 15:31 10/16/19 15:31 Intake & Output 10/15/19 10/16/19 10/17/19 06:59 06:59 06:59 Weight 81.647 kg General appearance: PRESENT: no acute distress, cooperative Eye exam: PRESENT: EOMI Neck exam: ABSENT: JVD Respiratory exam: PRESENT: clear to auscultation mikal, unlabored. ABSENT: tachypnea, wheezes Cardiovascular exam: PRESENT: RRR, +S1, +S2. ABSENT: tachycardia GI/Abdominal exam: PRESENT: soft. ABSENT: rebound, rigid, tenderness Extremities exam: ABSENT: pedal edema Neurological exam: PRESENT: alert, awake, oriented to person, oriented to place, oriented to time, oriented to situation, ataxia - right hand only on finger to nose test, CN II-XII grossly intact. ABSENT: motor sensory deficit, aphasic Psychiatric exam: PRESENT: appropriate affect, normal mood. ABSENT: agitated, anxious Focused psych exam: ABSENT: pressured speech Skin exam: ABSENT: jaundice Results Laboratory Results: 10/16/19 08:34 10/16/19 08:34 10/16/19 10/16/19 10/16/19 08:34 08:34 10:44 WBC 4.5 RBC 5.62 H Hgb 16.2 Hct 48.2 MCV 86 MCH 28.8 MCHC 33.6 RDW 14.6 H Plt Count 95 L Seg Neutrophils % 59.1 Sodium 137.1 Potassium 4.2 Chloride 105 Carbon Dioxide 25 Anion Gap 7 BUN 25 H Creatinine 1.23 Est GFR ( Amer) > 60 Glucose 112 H Calcium 9.8 Total Bilirubin 1.0 AST 22 Alkaline Phosphatase 82 Total Protein 7.2 Albumin 4.3 Urine Color STRAW Urine Appearance SLIGHTLY-CLOUDY Urine pH 6.0 Ur Specific [place] 1.008 Urine Protein NEGATIVE Urine Glucose (UA) NEGATIVE Urine Ketones NEGATIVE Urine Blood NEGATIVE Urine Nitrite NEGATIVE Ur Leukocyte Esterase NEGATIVE Urine WBC (Auto) 1 Urine RBC (Auto) 1 10/16/19 10/16/19 08:34 08:34 Creatine Kinase 89 Troponin I < 0.012 Impressions: Head CT 10/16/19 08:26 IMPRESSION: Subtle areas of hypoattenuation involving the left basal ganglia and insula suggestive of infarct. Questionable dense left MCA sign. Consider MRI for further characterization. EVIDENCE OF ACUTE STROKE: YES. LEFT MCA. Chest X-Ray 10/16/19 08:27 IMPRESSION: NO ACUTE RADIOGRAPHIC FINDING IN THE CHEST. Head MRI 10/16/19 08:55 IMPRESSION: Given faint correlative signal abnormality on FLAIR imaging, small foci of restricted diffusion seen within the subcortical white matter of the left parietooccipital parenchyma is consistent with acute to subacute ischemic injury in the left anterior cerebral artery territory. Left precentral gyrus subcortical T2 prolongation is consistent with sequela of previous ischemic injury. Otherwise normal appearance of the brain. EVIDENCE OF ACUTE STROKE: YES. LEFT ROSANNA Assessment and Plan - Diagnosis (1) Acute CVA (cerebrovascular accident) Is this a current diagnosis for this admission?: Yes Plan: MRI showing findings consistent with acute stroke involving the left parietal occipital region in the distribution of left ROSANNA NIH score is pretty much 1. Only noticeable deficit is right hand ataxia Check carotid Dopplers and echocardiogram Cardiac monitoring Neurochecks Permissive hypertension x24 hours Bedrest x24 hours PT/OT/social media campaign manager consulted. Patient will benefit from continued occupational therapy in the long run. Aspirin Plavix atorvastatin Check lipid panel hemoglobin A1c in a.m. (2) Hypertension Qualifiers: Hypertension type: essential hypertension Qualified Code(s): I10 - Essential (primary) hypertension Is this a current diagnosis for this admission?: Yes Plan: Permissive hypertension for now. 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 However at this time, he is mildly bradycardic in the low 50s. I will keep his diltiazem on hold for now. Monitor on telemetry. (4) Irregular heart beat Is this a current diagnosis for this admission?: Yes Plan: Patient states he has history of irregular heart beat. He is however unable to tell me if he has a humberto history of atrial fibrillation. He does follow with Dr. Ana Dsouza at [facility]. I will contact Dr. Dsouza to verify if patient truly does have history of A. fib as he does seem to be on diltiazem as this would mean that patient needs to be initiated on anticoagulation given his recent stroke. - Time Time Spent with patient: 35 or more minutes Anticipated Discharge Disposition: Home, Self Care Anticipated Discharge Timeframe: within 24 hours
[2019-10-16] MEDS: FAMOTIDINE 20 MG TABLET PO SCH (21:19)
[2019-10-16] MEDS ORDERED: ATORVASTATIN CALCIUM 80 MG TABLET PO SCH (22:00)
--- NOTE | 2019-10-16 22:50 | XCELERA REPORT ---
[address] [address] Transthoracic Echocardiogram Report Name: DAREK MELLO Age: 79 yrs Gender: Male : 1940 Patient Status: Inpatient Patient Location: [facility]^A Study Date: 10/16/2019 08:04 PM Height: 68 in Weight: 180 lb BSA: 2.0 m2 Procedure: A two-dimensional transthoracic echocardiogram with color flow and Doppler was performed. Study Quality: Fair. Reason For Study: cva History: CVA. Ordering Physician: JAISON CHOI Performed By: Lisha Mendoza Interpretation Summary The left ventricle is normal in size. There is normal left ventricular wall thickness. LV EF is 65% to 70% Left ventricular systolic function is normal. Doppler measurements suggest impaired left ventricular relaxation, which is associated with grade I/IV or mild diastolic dysfunction The left ventricular wall motion is normal. There is no thrombus. No ASD ,VSD , or PFO seen. The right ventricle is normal in size and function. The right atrium is normal. The left atrial size is normal. There is no evidence of mitral valve prolapse. There is no vegetation seen on the mitral valve. There is no mitral valve stenosis. There is a trace amount of mitral regurgitation There is no aortic valvular vegetation. There is no aortic valve stenosis There is aortic sclerosis without aortic stenosis. There is no LVOT obstruction. There is a mild amount of aortic regurgitation There is no tricuspid stenosis. There is a mild amount of tricuspid regurgitation Right ventricular systolic pressure is normal. RVSP is 20 to 25 mm of Hg , with RA mean of 5 to 10. There is no pulmonic valvular stenosis. There is a trace amount of pulmonic regurgitation The aortic root is normal size. The inferior vena cava appeared normal and decreased > 50% with respiration (RAP 5-10 mmHg) There is no pericardial effusion. MMode/2D Measurements & Calculations RVDd: 2.1 cm LVIDd: 5.5 cm FS: 41.5 % Ao root diam: 3.4 cm IVSd: 0.92 cm LVIDs: 3.2 cm EDV(Teich): Ao root area: LVPWd: 0.89 cm 147.6 ml 9.3 cm2 ESV(Teich): 41.5 mlLA dimension: 2.9 cm EF(Teich): 71.9 % LVLd ap4: 7.4 cm SV(MOD-sp4): EDV(MOD-sp4): 70.0 ml 98.0 ml LVLs ap4: 5.8 cm ESV(MOD-sp4): 28.0 ml EF(MOD-sp4): 71.4 % Doppler Measurements & Calculations MV E max queta: MV P1/2t max queta: Ao V2 max: AI max queta: 80.6 cm/sec 92.9 cm/sec 132.3 cm/sec 231.4 cm/sec MV A max queta: MV P1/2t: 100.2 msec Ao max PG: AI max P.0 cm/sec MVA(P1/2t): 2.2 cm2 7.0 mmHg 21.4 mmHg MV E/A: 0.94 MV dec slope: AI dec slope: 271.5 cm/sec2 114.3 cm/sec2 MV dec time: AI P1/2t: 0.23 sec 593.2 msec LV V1 max PG: PA V2 max: PI end-d queta: TR max queta: 3.4 mmHg 72.1 cm/sec 145.1 cm/sec 194.1 cm/sec LV V1 max: PA max P.1 mmHg TR max P.5 cm/sec 15.1 mmHg AV P1/2t-pr_phl: MV P1/2t-pr_phl: 593.2 msec 100.2 msec Left Ventricle The left ventricle is normal in size. There is normal left ventricular wall thickness. LV EF is 65% to 70%. Left ventricular systolic function is normal. Doppler measurements suggest impaired left ventricular relaxation, which is associated with grade I/IV or mild diastolic dysfunction. The left ventricular wall motion is normal. There is no thrombus. No ASD ,VSD , or PFO seen. Right Ventricle The right ventricle is normal in size and function. Atria The right atrium is normal. The left atrial size is normal. Mitral Valve There is no evidence of mitral valve prolapse. There is no vegetation seen on the mitral valve. There is no mitral valve stenosis. There is a trace amount of mitral regurgitation. Aortic Valve There is no aortic valvular vegetation. There is no aortic valve stenosis. There is aortic sclerosis without aortic stenosis. There is no LVOT obstruction. There is a mild amount of aortic regurgitation. Tricuspid Valve There is no tricuspid stenosis. There is a mild amount of tricuspid regurgitation. Right ventricular systolic pressure is normal. RVSP is 20 to 25 mm of Hg , with RA mean of 5 to 10. Pulmonic Valve There is no pulmonic valvular stenosis. There is a trace amount of pulmonic regurgitation. Great Vessels The aortic root is normal size. The inferior vena cava appeared normal and decreased > 50% with respiration (RAP 5-10 mmHg). Effusions There is no pericardial effusion. : JAISON CHOI Lakshmi
[2019-10-17 06:08] LABS: CHOLESTEROL 159.33 mg/dL (0-200); TRIGLYCERIDES 123 mg/dL (<150)
[2019-10-17 06:18] LABS: DIRECT LDL 91 mg/dL (<100)
[2019-10-17] MEDS: FAMOTIDINE 20 MG TABLET PO SCH (09:55)
[2019-10-17] MEDS ORDERED: HYDROCHLOROTHIAZIDE 12.5 MG TABLET PO SCH (10:00)
[2019-10-17] MEDS ORDERED: CLOPIDOGREL BISULFATE 75 MG TABLET PO SCH (10:00)
[2019-10-17] MEDS ORDERED: ASPIRIN 81 MG TABLET, ENT COATED PO SCH (10:00)
[2019-10-17] MEDS ORDERED: LISINOPRIL 10 MG TABLET PO SCH (10:00)
[2019-10-17] MEDS ORDERED: ENOXAPARIN SODIUM INJ 40 MG/0.4 ML DISP.SYRIN SUBCUT SCH (10:00)
--- NOTE | 2019-10-17 11:12 | RADIOLOGY REPORT (SQ) ---
EXAM DESCRIPTION: CAROTID DOPPLER IMAGES COMPLETED DATE/TIME: 10/16/2019 8:55 pm REASON FOR STUDY: acute CVA COMPARISON: None. TECHNIQUE: Grayscale ultrasound, Doppler velocity and spectra, and color Doppler images acquired of the extra-cranial carotid and vertebral arteries. Images stored on PACS. LIMITATIONS: None. FINDINGS: RIGHT CAROTID CCA Velocities: Within normal limits. ICA Velocities Peak systolic 0.51 m/s. End diastolic 0.15 m/s. Proximal ICA/CCA peak systolic ratio 1.4. Spectra normal. No significant plaque. LEFT CAROTID CCA Velocities: Within normal limits. ICA Velocities Peak systolic 0.50 m/s. End diastolic 0.18 m/s. Proximal ICA/CCA peak systolic ratio 1.2. Spectra normal. No significant plaque. VERTEBRAL ARTERIES: Antegrade flow. Normal waveforms. SUBCLAVIAN ARTERIES: Not imaged. OTHER: No other significant finding. IMPRESSION: NO HEMODYNAMICALLY SIGNIFICANT STENOSIS. COMMENT: Quality ID #[id number]: Velocity criteria are extrapolated from the diameter data as defined by t he Society of Radiologists in Ultrasound Consensus Conference. Radiology 2003: 229; 340-346. TECHNICAL DOCUMENTATION: JOB ID: [id number] [employer]- All Rights Reserved Reading location - IP/workstation name: [email or web address]
[2019-10-17 13:02] VITALS: BP 139/70
--- NOTE | 2019-10-17 13:08 | PDOC DISCHARGE SUMMARY ---
Impression - Admit/DC Date/PCP Admission Date/Primary Care Provider: 10/16/19 11:44 TIM MINOR MD Discharge Date: 10/17/19 - Discharge Diagnosis (1) Acute CVA (cerebrovascular accident) Is this a current diagnosis for this admission?: Yes (2) Hypertension Is this a current diagnosis for this admission?: Yes (3) First degree atrioventricular block by electrocardiogram Is this a current diagnosis for this admission?: Yes (4) Paroxysmal SVT (supraventricular tachycardia) Is this a current diagnosis for this admission?: Yes - Additional Information Resuscitation Status: Full Code Discharge Diet: Cardiac Discharge Activity: Activity As Tolerated Referrals: TIM MINOR MD [Primary Care Provider] - 10/24/19 2:00 pm ANA LIN MD [NO LOCAL MD] - (The office will call the patient for follow- up.) Prescriptions: Aspirin [Ecotrin 81 mg EC Tablet] 81 mg PO DAILY #30 tabec Atorvastatin Calcium [Lipitor 40 mg Tablet] 40 mg PO QHS #30 tablet Clopidogrel Bisulfate [Plavix 75 mg Tablet] 75 mg PO DAILY 20 Days #20 tablet Home Medications: Lisinopril/Hydrochlorothiazide [Lisinopril-Hctz 10-12.5 mg Tab] 1 each PO DAILY 10/16/19 Aspirin [Ecotrin 81 mg EC Tablet] 81 mg PO DAILY #30 tabec 10/17/19 Atorvastatin Calcium [Lipitor 40 mg Tablet] 40 mg PO QHS #30 tablet 10/17/19 Clopidogrel Bisulfate [Plavix 75 mg Tablet] 75 mg PO DAILY 20 Days #20 tablet 10/17/19 Diltiazem HCl [Diltiazem 24Hr ER] 180 mg PO DAILY 10/17/19 History of Present Illiness History of Present Illness: DAREK MELLO is a 79 year old male with a history of hypertension and " irregular heart rhythm", who presents to the hospital with complaints of right- hand ataxia which started this morning around 6 AM. He had no other symptoms besides this. He denied any visual deficits, slurred speech, or other weakness in his extremities. He also denies any history of previous strokes. In the ER, head CT scan was unremarkable but MRI of the brain revealed acute CVA. Was evaluated by the ER doctor and patient declined TPA after receiving explanation of risks and benefits from the ER physician. NIH score on presentation was 1. Currently being admitted for work-up of CVA. Hospital Course Hospital Course: Patient presented with stroke. He has been evaluated by ER physician and he had declined TPA. NIH score was pretty much just over 1 with his only deficit pain right hand ataxia. MRI of the brain was done which confirmed stroke in his left parieto-occipital region in the region of the left ROSANNA. Stroke protocol was initiated. Patient was placed on bedrest with flat in bed and permissive hypertension for 24 hours. Bedside swallow screen was passed. He was started on aspirin Plavix. Lipid panel also showed LDL in the 90s. He was started on atorvastatin 40 mg nightly. Hemoglobin A1c was normal. EKG on presentation showed first-degree AV block which was present before. He was noted to be bradycardic on night monitor in the 50s. As a result of this his diltiazem was stopped. I also discussed with his publication director Dr. Ana Lin as patient told me he had history of irregular heart beat and Dr. Ana Lin confirms to me that patient has paroxysmal SVT but no confirmation of A. fib. Patient had carotid ultrasound done which was unremarkable as well as a normal echocardiogram. I am discharging patient on aspirin lifelong, Plavix for 20 days and atorvastatin. This morning, shortly before discharge, patient went into SVT again into the 140s after ambulating. No irregularity to suggest A. fib noted on the night monitor. His SVT subsided spontaneously and back to sinus rhythm with first-degree AV block but now heart rate is sustaining in the 70s. As a result of this I have instructed patient to resume his diltiazem tablet but to watch his heart rate closely and we will get patient a follow-up appointment with Dr. Ana Lin to review this issue. As patient has no documented A. fib/a flutter, he will not be discharged on any anticoagulation and to follow-up with Ana Lin to determine if this is needed. He has been set up for outpatient occupational therapy. Physical Exam Vital Signs: Temp Pulse Resp BP Pulse Ox 97.7 F 66 16 127/86 H 100 10/17/19 04:00 10/17/19 09:00 10/17/19 09:00 10/17/19 09:00 10/17/19 09:00 Intake & Output 07/10/17/19 10/18/19 06:59 06:59 06:59 Weight 82.6 kg General appearance: PRESENT: no acute distress, cooperative Neck exam: ABSENT: JVD Respiratory exam: PRESENT: clear to auscultation mikal, unlabored Cardiovascular exam: PRESENT: RRR, +S1, +S2 Neurological exam: PRESENT: alert, awake, oriented to person, oriented to place, oriented to time, oriented to situation, ataxia, CN II-XII grossly intact. ABSENT: motor sensory deficit Results Laboratory Results: WBC 4.5 10^3/uL (4.0-10.5) 10/16/19 08:34 RBC 5.62 10^6/uL (4.35-5.55) H 10/16/19 08:34 Hgb 16.2 g/dL (13.5-17.0) 10/16/19 08:34 Hct 48.2 % (37.9-51.0) 10/16/19 08:34 MCV 86 fl (80-97) 10/16/19 08:34 MCH 28.8 pg (27.0-33.4) 10/16/19 08:34 MCHC 33.6 g/dL (32.0-36.0) 10/16/19 08:34 RDW 14.6 % (11.5-14.0) H 10/16/19 08:34 Plt Count 95 10^3/uL (150-450) L 10/16/19 08:34 Lymph % (Auto) 25.2 % (13-45) 10/16/19 08:34 [place] % (Auto) 12.2 % (3-13) 10/16/19 08:34 Eos % (Auto) 2.8 % (0-6) 10/16/19 08:34 Baso % (Auto) 0.7 % (0-2) 10/16/19 08:34 Absolute Neuts (auto) 2.7 10^3/uL (1.7-8.2) 10/16/19 08:34 Absolute Lymphs (auto) 1.1 10^3/uL (0.5-4.7) 10/16/19 08:34 Absolute Monos (auto) 0.6 10^3/uL (0.1-1.4) 10/16/19 08:34 Absolute Eos (auto) 0.1 10^3/uL (0.0-0.6) 10/16/19 08:34 Absolute Basos (auto) 0.0 10^3/uL (0.0-0.2) 10/16/19 08:34 Seg Neutrophils % 59.1 % (42-78) 10/16/19 08:34 PT 13.7 SEC (11.4-15.4) 10/16/19 08:34 INR 1.05 10/16/19 08:34 APTT 28.2 SEC (23.5-35.8) 10/16/19 08:34 Sodium 137.1 mmol/L (137-145) 10/16/19 08:34 Potassium 4.2 mmol/L (3.6-5.0) 10/16/19 08:34 Chloride 105 mmol/L (98-107) 10/16/19 08:34 Carbon Dioxide 25 mmol/L (22-30) 10/16/19 08:34 Anion Gap 7 (5-19) 10/16/19 08:34 BUN 25 mg/dL (7-20) H 10/16/19 08:34 Creatinine 1.23 mg/dL (0.52-1.25) 10/16/19 08:34 Est GFR ( Amer) > 60 (>60) 10/16/19 08:34 Est GFR (MDRD) Non-Af 57 (>60) L 10/16/19 08:34 Glucose 112 mg/dL (75-110) H 10/16/19 08:34 Hemoglobin A1c % 5.6 % (4.7-6.0) 10/17/19 05:23 Calcium 9.8 mg/dL (8.4-10.2) 10/16/19 08:34 Total Bilirubin 1.0 mg/dL (0.2-1.3) 10/16/19 08:34 Direct Bilirubin 0.0 mg/dL (0.0-0.4) 10/16/19 08:34 Neonat Total Bilirubin Not Reportable 10/16/19 08:34 Neonat Direct Bilirubin Not Reportable 10/16/19 08:34 Neonat Indirect Bili Not Reportable 10/16/19 08:34 AST 22 U/L (17-59) 10/16/19 08:34 ALT 15 U/L (<50) 10/16/19 08:34 Alkaline Phosphatase 82 U/L (38-126) 10/16/19 08:34 Creatine Kinase 89 U/L (55-170) 10/16/19 08:34 Troponin I < 0.012 ng/mL 10/16/19 08:34 Total Protein 7.2 g/dL (6.3-8.2) 10/16/19 08:34 Albumin 4.3 g/dL (3.5-5.0) 10/16/19 08:34 Triglycerides 123 mg/dL (<150) 10/17/19 05:23 Cholesterol 159.33 mg/dL (0-200) 10/17/19 05:23 LDL Cholesterol Direct 91 mg/dL (<100) 10/17/19 05:23 VLDL Cholesterol 25.0 mg/dL (10-31) 10/17/19 05:23 HDL Cholesterol 47 mg/dL (>40) 10/17/19 05:23 TSH 1.46 uIU/mL (0.47-4.68) 10/17/19 05:23 Urine Color STRAW 10/16/19 10:44 Urine Appearance SLIGHTLY-CLOUDY 10/16/19 10:44 Urine pH 6.0 (5.0-9.0) 10/16/19 10:44 Ur Specific [place] 1.008 10/16/19 10:44 Urine Protein NEGATIVE mg/dL (NEGATIVE) 10/16/19 10:44 Urine Glucose (UA) NEGATIVE mg/dL (NEGATIVE) 10/16/19 10:44 Urine Ketones NEGATIVE mg/dL (NEGATIVE) 10/16/19 10:44 Urine Blood NEGATIVE (NEGATIVE) 10/16/19 10:44 Urine Nitrite NEGATIVE (NEGATIVE) 10/16/19 10:44 Urine Bilirubin NEGATIVE (NEGATIVE) 10/16/19 10:44 Urine Urobilinogen NEGATIVE mg/dL (<2.0) 10/16/19 10:44 Ur Leukocyte Esterase NEGATIVE (NEGATIVE) 10/16/19 10:44 Urine WBC (Auto) 1 /HPF 10/16/19 10:44 Urine RBC (Auto) 1 /HPF 10/16/19 10:44 Urine Mucus (Auto) OCC /LPF 10/16/19 10:44 Urine Ascorbic Acid NEGATIVE (NEGATIVE) 10/16/19 10:44 10/16/19 08:34 Troponin I < 0.012 Impressions: Carotid Doppler Study 10/16/19 00:00 IMPRESSION: NO HEMODYNAMICALLY SIGNIFICANT STENOSIS. Head CT 10/16/19 08:26 IMPRESSION: Subtle areas of hypoattenuation involving the left basal ganglia and insula suggestive of infarct. Questionable dense left MCA sign. Consider MRI for further characterization. EVIDENCE OF ACUTE STROKE: YES. LEFT MCA. Chest X-Ray 10/16/19 08:27 IMPRESSION: NO ACUTE RADIOGRAPHIC FINDING IN THE CHEST. Head MRI 10/16/19 08:55 IMPRESSION: Given faint correlative signal abnormality on FLAIR imaging, small foci of restricted diffusion seen within the subcortical white matter of the left parietooccipital parenchyma is consistent with acute to subacute ischemic injury in the left anterior cerebral artery territory. Left precentral gyrus subcortical T2 prolongation is consistent with sequela of previous ischemic injury. Otherwise normal appearance of the brain. EVIDENCE OF ACUTE STROKE: YES. LEFT ROSANNA Plan Time Spent: Less than 30 Minutes Stroke Is this a Stroke Patient?: Yes Stroke Pt being discharged on Anti-thrombolytic therapy?: Yes Stroke Pt being discharged on Anti-coagulation therapy?: No Reason(s) for not prescribing Anti-coagulation therapy:: Not indicated Stroke Pt being discharged on Statins?: Yes Acute Heart Failure - Is this a Heart Failure Patient?: No
[2019-10-17] MEDS ORDERED: DILTIAZEM HCL 180 MG CAPSULE.CR PO ONE (14:00)
--- NOTE | 2019-10-17 17:54 | EKG REPORT ---
SEVERITY:- ABNORMAL ECG - SINUS RHYTHM FIRST DEGREE AV BLOCK : Confirmed by: Kaylen Serrano MD 17-Oct-2019 17:53:27
--- NOTE | 2019-10-17 17:55 | EKG REPORT ---
SEVERITY:- ABNORMAL ECG - ABNRM R PROG, CONSIDER ASMI OR LEAD PLACEMENT SINUS RHYTHM FIRST DEGREE AV BLOCK : Confirmed by: Kaylen Serrano MD 17-Oct-2019 17:54:21
[2019-10-17] MEDS ORDERED: ATORVASTATIN CALCIUM 40 MG TABLET PO SCH (22:00)
== END 2019-10-17 14:28 | disposition home or self-care (01) ==
LOC: ER 08:23 → INTOOBSV 11:44 → EH 11:44 → 3W 16:42
PROVIDERS: ADMIT Internal Medicine; ATTEND Internal Medicine
DX: I63.89 Other cerebral infarction (principal); R27.0 Ataxia, unspecified; I10 Essential (primary) hypertension; I44.0 Atrioventricular block, first degree; I47.1 Supraventricular tachycardia; Z79.899 Other long term (current) drug therapy; R29.701 NIHSS score 1; Z85.828 Personal history of other malignant neoplasm of skin; Z82.49 Family history of ischemic heart disease and other diseases of the circulatory system; Z87.891 Personal history of nicotine dependence
CPT/HCPCS: 93005 ×2; 99291; 36415 ×2; 82550; 84443; 85025; 85610; 85730; 80053; 81001; 84484; 83036; 80061; 93306; 93880; 70551; 71045; 70450; 93010 ×2; 97116; 97161; 97530; 97112; 97165; A9270 ×6; J3490

== ENCOUNTER 2019-10-19 08:13 | Emergency (ER) | payer MEDICARE, OTHER ==
[2019-10-19 08:45] LABS: INTERNATIONAL RATION (INR) 1.12; PROTHROMBIN TIME 14.6 SEC (11.4-15.4)
--- NOTE | 2019-10-19 08:46 | RADIOLOGY REPORT (SQ) ---
EXAM DESCRIPTION: CT HEAD WITHOUT IMAGES COMPLETED DATE/TIME: 10/19/2019 8:31 am REASON FOR STUDY: STROKE LIKE SYMPTOMS COMPARISON: 10/16/2019. TECHNIQUE: Axial images acquired through the brain without intravenous contrast. Images reviewed wi th bone, brain and subdural windows. Additional sagittal and coronal reconstructions were generated. Images stored on PACS. All CT scanners at this facility use dose modulation, iterative reconstruction, and/or weight based d osing when appropriate to reduce radiation dose to as low as reasonably achievable (ALARA). [facility]: Dose Right [facility]: CareDose [facility]: Dose Right [facility]: Teradose 4D [facility]: Smart datapine RADIATION DOSE: CT Rad equipment meets quality standard of care and radiation dose reduction techniq ues were employed. CTDIvol: 53.2 mGy. DLP: 1070 mGy-cm. mGy. LIMITATIONS: None. FINDINGS: VENTRICLES: Prominent. CEREBRUM: No masses. No hemorrhage. No midline shift. Areas of low density in the white matter mos t likely due to chronic micro-vascular ischemic change. No evidence for acute infarction. CEREBELLUM: No masses. No hemorrhage. No alteration of density. No evidence for acute infarction. EXTRAAXIAL SPACES: Mild age-related involutional change. No fluid collections. No masses. ORBITS AND GLOBE: No intra- or extraconal masses. Normal contour of globe without masses. CALVARIUM: No fracture. PARANASAL SINUSES: No fluid or mucosal thickening. SOFT TISSUES: No mass or hematoma. OTHER: No other significant finding. IMPRESSION: MILD CHRONIC CHANGES OF ATROPHY AND MICROVASCULAR ISCHEMIA. NO ACUTE PROCESS. EVIDENCE OF ACUTE STROKE: NO. TECHNICAL DOCUMENTATION: JOB ID: [id number] Quality ID # [id number]: Final reports with documentation of one or more dose reduction techniques (e.g., Au tomated exposure control, adjustment of the mA and/or kV according to patient size, use of iterative reconstruction technique) 2010 [employer]- All Rights Reserved Reading location - IP/workstation name: [email or web address]
[2019-10-19 08:47] LABS: ABSOLUTE EOSINOPHILS # (AUTO) 0.1 10^3/uL (0.0-0.6); ABSOLUTE LYMPHOCYTES (AUTO) 1.1 10^3/uL (0.5-4.7); ABSOLUTE MONOCYTES (AUTO) 0.6 10^3/uL (0.1-1.4); ABSOLUTE NEUT (AUTO) 3.2 10^3/uL (1.7-8.2); BASOPHILS % (AUTO) 0.8 % (0-2); EOSINOPHILS % (AUTO) 1.2 % (0-6); HEMATOCRIT 52.6 % (37.9-51.0); HEMOGLOBIN 17.9 g/dL (13.5-17.0); MEAN CORPUSCULAR HGB CONC 34.1 g/dL (32.0-36.0); MEAN CORPUSCULAR VOLUME 85 fl (80-97); MONOCYTES % (AUTO) 11.5 % (3-13); PLATELET COUNT 102 10^3/uL (150-450); RED BLOOD COUNT 6.18 10^6/uL (4.35-5.55); RED CELL DISTRIBUTION WIDTH 14.8 % (11.5-14.0); SEGMENTED NEUTROPHILS % (AUTO) 63.5 % (42-78); TOTAL CELLS COUNTED % (AUTO) 100 %
--- NOTE | 2019-10-19 08:47 | RADIOLOGY REPORT (SQ) ---
EXAM DESCRIPTION: CHEST SINGLE VIEW IMAGES COMPLETED DATE/TIME: 10/19/2019 8:29 am REASON FOR STUDY: STROKE LIKE SYMPTOMS COMPARISON: 10/16/2019. EXAM PARAMETERS: NUMBER OF VIEWS: One view. TECHNIQUE: Single frontal radiographic view of the chest acquired. RADIATION DOSE: NA LIMITATIONS: None. FINDINGS: LUNGS AND PLEURA: No opacities, masses or pneumothorax. No pleural effusion. MEDIASTINUM AND HILAR STRUCTURES: No masses. Contour normal. HEART AND VASCULAR STRUCTURES: Heart normal in size. Normal vasculature. BONES: No acute findings. HARDWARE: None in the chest. OTHER: No other significant finding. IMPRESSION: NO ACUTE RADIOGRAPHIC FINDING IN THE CHEST. TECHNICAL DOCUMENTATION: JOB ID: [id number] 2010 [employer]- All Rights Reserved Reading location - IP/workstation name: [email or web address]
[2019-10-19 08:59] LABS: ALBUMIN 4.5 g/dL (3.5-5.0); ALKALINE PHOSPHATASE 75 U/L (38-126); ANION GAP 7 (5-19); ASPARTATE AMINO TRANSFERASE 24 U/L (17-59); BILIRUBIN,TOTAL 2.1 mg/dL (0.2-1.3); BLOOD UREA NITROGEN 22 mg/dL (7-20); CARBON DIOXIDE 27 mmol/L (22-30); CHLORIDE 103 mmol/L (98-107); CREATINE KINASE 78 U/L (55-170); GLUCOSE 107 mg/dL (75-110); POTASSIUM 4.3 mmol/L (3.6-5.0); TOTAL PROTEIN 7.7 g/dL (6.3-8.2)
[2019-10-19 09:11] LABS: CREATINE KINASE MB 2.17 ng/mL (<4.55)
[2019-10-19 09:13] LABS: TROPONIN I < 0.012 ng/mL
[2019-10-19 09:55] VITALS: BP 137/78
--- NOTE | 2019-10-19 15:43 | ER Document Report ---
Entered by BERT HIGUERA SCRIBE 10/19/19 0851 Acting as scribe for:VINH TRENT MD ED Neuro Symptoms/Deficit - General Chief Complaint: Trouble Talking Stated Complaint: DIFFICULTY BREATHING Time Seen by Provider: 10/19/19 08:44 Primary Care Provider: TIM MINOR MD [Primary Care Provider] - Follow up as needed Mode of Arrival: Ambulatory Information source: Patient, Relative, [facility] Records Notes: This 79 year old male patient presents to the emergency department today with complaints of aphasia. EMS reports that the patient's son told them that he was having difficulty speaking last night but the reports that it started just prior to arrival. After further questioning it appears that last night he had some difficulty saying what he was thinking(such as "describing the curtain as being arevalo") but this morning about 7:25 AM he became acutely dysarthric and nearly aphasic. The patient was seen here on 10/16/2019 with acute CVA involving the distribution of the left ROSANNA. He had minimal findings at that time which were only ataxia of the right hand. The patient nods in agreement and the spouse says that his symp toms had completely resolved prior to discharge on 10/17/2019. TRAVEL OUTSIDE OF THE [place] IN LAST 30 DAYS: No - Related Data Allergies/Adverse Reactions: No Known Allergies Allergy (Verified 11/13/18 09:18) Past Medical History - General Information source: Patient, Relative, Emergency Med Personnel, [facility] Records - Social History Smoking Status: Former Smoker Cigarette use (# per day): No Chew tobacco use (# tins/day): No Smoking Education Provided: No Lives with: Spouse/Significant other Family History: Reviewed & Not Pertinent, Hypertension - Past Medical History Cardiac Medical History: Reports: Hx Hypertension - CONTROLLED/MEDICATED Neurological Medical History: Reports: Hx Cerebrovascular Accident Malignancy Medical History: Reports Hx Skin Cancer - Squamous cell Past Surgical History: Reports: Other - Multiple squamous cell lesions removed. Bilateral cataract repair. - Immunizations Hx Diphtheria, Pertussis, Tetanus Vaccination: No - UNK Hx Pneumococcal Vaccination: 03/20/10 Review of Systems - Review of Systems -: Yes ROS unobtainable due to patient's medical condition - aphasia Neurological/Psychological: See HPI, Speech impairment Physical Exam - Vital signs Vitals: Temp Pulse Resp BP Pulse Ox 98.5 F 63 17 122/72 96 10/19/19 08:35 10/19/19 08:35 10/19/19 08:35 10/19/19 08:35 10/19/19 08:35 - General General appearance: Alert, Anxious In distress: None - HEENT Head: Normocephalic, Atraumatic Eyes: Normal Pupils: PERRL Neck: Normal. No: Carotid bruit - Respiratory Respiratory status: No respiratory distress Breath sounds: Normal - Cardiovascular Rhythm: Regular Heart sounds: Normal auscultation Murmur: No - Abdominal Inspection: Normal Bowel sounds: Normal Tenderness: Nontender - Back Back: Normal - Extremities General upper extremity: Other - Right fingers are held in flexion General lower extremity: Normal inspection - Neurological Neuro grossly intact: No Notes: There is a very slight right facial weakness noticed when the patient smiles. The patient has severe dysarthria and aphasia. When asked a question he looks like he wants to answer and starts crying when he is unable to either find or form the words. He does follow simple commands, he does recognize his spouse. He has vision in both eyes and extraocular muscles are intact. The right upper extremity shows some ataxia to the right hand similar to what was seen when he presented with acute CVA 3 days ago. The other 3 extremities are unremarkable on exam. - Psychological Associated symptoms: Normal affect, Normal mood - Skin Skin Temperature: Warm Skin Moisture: Dry Skin Color: Normal Course - Re-evaluation Re-evalutation: 10/19/19 15:48 I called MRI as soon as the patient arrived, they were just starting to get their magnet up and going. Sometime later when I tried to order the MRIs, I will eventually got a hold of the tech who stated that the MRI was not going to work and it would be out of service all weekend. At that point I called [facility] Stroke team and made arrangements to transfer the patient. - Vital Signs Vital signs: Temp Pulse Resp BP Pulse Ox 98.5 F 63 17 122/72 96 10/19/19 08:35 10/19/19 08:35 10/19/19 08:35 10/19/19 08:35 10/19/19 08:35 - Laboratory Result Diagrams: 10/19/19 07:55 10/19/19 07:55 - Diagnostic Test Radiology reviewed: Image reviewed, Reports reviewed - CT scan does not show acute abnormalities. - EKG Interpretation by Me EKG shows normal: Sinus rhythm, [place], Intervals, QRS Complexes, ST-T Waves Rate: Normal - 61 Heart block present: 1st Degree When compared to previous EKG there are: No significant change Critical Care Note - Critical Care Note Total time excluding time spent on procedures (mins): 35 Comments: At least 35 minutes spent evaluating the patient, reviewing the history from his stroke presentation 4 days ago, phone calls trying to arrange MRI locally, then phone calls to the stroke center at [facility], and later discussion with the neurologist called back. ED Alteplase Inc/Exc Criteria - Inclusion Criteria: 1: Patient presented to ED within 3 hours of acute ischemic stroke symptom onset? 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 -: Yes 3: Is the age of the patient 18 years of age or greater? -: Yes : If any of the above questions are answered "NO" then stop, patient is not a candidate for Alteplase, : If all of the above questions are answered "YES" then continue with Exclusion Criteria. - Exclusion Criteria: 1: Is there evidence of intracranial hemorrhage on baseline CT? -: No 2: Is there suspicion of subarachnoid hemorrhage (even if CT negative)? -: No 3: Is there a history of serious head trauma, recent previous stroke or DE within 3 months? -: No 4: Does the patient have a clinical presentation consistent with DE or post-DE pericarditis? -: No 5: Is there history of intracranial hemorrhage? -: No 6: On repeated measurement is Systolic BP greater than 185mmHg or Diastolic BP greater that 110 mmHg and is aggressive treatment needed to reduce blood pressure to these limits (e.g. constant infusion of an anti-hypertensive)? -: No 7: Did the patient awake with stroke symptoms? -: No 8: Has the patient had a lumbar puncture or an arterial puncture at a non- compressile site within 7 days? -: No 9: With in the last 14 days did the patient have surgery or major trauma? -: No 10: Is the patient or less than 2 weeks? -: No 11: Was there any active bleeding or acute trauma? -: No 12: Does the patient have intracranial neoplasm, arteriovenous malformation or aneurysm? 13: Does the patient have abnormal glucose (less than 50 or greater than 400mg/dl)? Record glucose in Comment. -: No 14: Patient has rapidly improving symptoms at the time Alteplase is to be Administered. -: No 15: Does the patient have any risks for bleeding, including but not limited to: a.: Current use of Coumadin with PT greater than 15 seconds or INR greater than 1.7. b.: Current use of Pradaxa (Dabigatran). c.: Heparin administereed within the past 48 hours and PTT elevated. d.: Platelet count less than 100,000/mm. e.: Major surgery or serious trauma within 14 days. f.: Gastrointestinal or gynecological urinary bleeding within 14 days. g.: Myocardial Infarction (DE) within 3 months. -: No : If the answer to any of the above questions is "YES" then stop, the patient is not a candidate for Alteplase. : If the answer to all of the above questions is "NO" then the patient may be eligible for the Administration of Alteplase. : If the patient is noted to have seizure activity at onset of Stroke symptoms; Consult Neurologist for further evaluation. - The patient is: -: Included and is eligible to receive Alteplase. *Initiate bed placement at higher level of care* --: No Reviewed risks & benefits of thrombolytic therapy: I have reviewed the risks and benefits of thrombolytic therapy with the patient and/or his/her family. No -: Excluded and not eligible to receive Alteplase for the above exclusions. --: No -: Excluded and not eligible to receive Alteplase for other reasons (specify in comments): --: Yes - Acute CVA 3 days ago - Diagnosis of TIA: -: Patient presented with transient symptoms that are now resolved and no other neurologic findings are currently present. List symptoms in comments. -: Patient is NOT a candidate for tPA. -: ____(put name in comment) has been consulted for admission and continued evaluation of risk factor assessment. ED NIH Stroke Scale - NIH Stroke Scale *: 1. NIH scale should be completed with appropriate accompanying assessment tools. *: 2. The NIH should reflect what the patient is capable of doing and should not be coached by the clinician. 1a. Level of Consciousness: 0=Alert;keenly responsive -: 1=Drowsy -: 2=Obtunded -: 3=Coma/unresponsive or reflex to noxious stimuli. 1a. Responses: 0 1b. Orientation Questions: a. What month is it? -: b. How old are you? -: 0=Answers both questions correctly. -: 1=Answers one question correctly or patient is intubated or has orotracheal trauma. -: 2=Answers neither question correctly. 1b. Responses: 2 1c. Response to commands: a. Open and close eyes? -: b. 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 -: Credit is given despite weakness. Demonstration of task is permitted. Substitute command if hands cannot be used. -: 0=Performs both tasks correctly -: 1=Performs one task correctly -: 2=Performs neither task correctly 1c. Responses: 0 2. Gaze: Establish eye contact and instruct patient to "Follow my finger" -: 0=Normal -: 1=Partial gaze palsy. Gaze is abnormal in one or both eyes, but where forced deviation or total gaze paresis is not present. -: 2=Forced deviation or total gaze paresis. 2. Responses: 0 3. Visual Kim: Sees fingers in all four quadrants. -: 0=No visual loss. -: 1=Partial hemianopsia. -: 2=Complete hemianopsia. -: 3=Bilateral hemianopsia (including Cortical blindness) 3. Responses: 0 4. Facial Movement: Instruct patient to: -: a. Show me your teeth -: b. Raise your eyebrows -: c. Close your eyes -: d. Smile -: 0=Normal symmetrical movement -: 1=Minor paralysis (flattened nasolabial fold, asymmetry on smiling). -: 2=Partial paralysis (total or near total paralysis of lower face). -: 3=Complete paralysis of upper and lower face 4. Responses: 1 5. Motor functions (left arm): Alternate sides and extend each arm with palms down (90 degrees if sitting or 45 degrees for supine). -: 0=No drift;limb holds for full 10 seconds. -: 1=Drift; limb holds but drifts down before full 10 seconds, but does not hit bed. -: 2=Some effort against gravity; limb cannot get to or maintain position. -: 3=No effort against gravity; limb falls. -: 4=No movement. -: UN=Amputation, joint fusion, explain in comments. 5. Responses (left arm): 0 5. Motor Functions (right arm): Alternate sides and extend each arm with palms down (90 degrees if sitting or 45 degrees for supine). -: 0=No drift;limb holds for full 10 seconds. -: 1=Drift; limb holds but drifts down before full 10 seconds, but does not hit bed. -: 2=Some effort against gravity; limb cannot get to or maintain position. -: 3=No effort against gravity; limb falls. -: 4=No movement. -: UN=Amputation, joint fusion, explain in comments. 5. Responses (right arm): 0 6. Motor Functions (left leg): With patient lying supine, alternate sides and extend each leg (30 degrees always while supine). -: 0=No drift, leg holds position for full 5 seconds -: 1=Drift; leg falls before full 5 seconds but does not hit bed. -: 2=Some effort against gravity, leg falls to bed but some effort against gravity. -: 3=No effort against gravity, leg falls to bed immediately. -: 4=No movement. -: UN=Amputation, joint fusion; explain in comments. 6. Responses (left leg): 0 6. Motor Functions (right leg): With patient lying supine, alternate sides and extend each leg (30 degrees always while supine). -: 0=No drift, leg holds position for full 5 seconds -: 1=Drift; leg falls before full 5 seconds but does not hit bed. -: 2=Some effort against gravity, leg falls to bed but some effort against gravity. -: 3=No effort against gravity, leg falls to bed immediately. -: 4=No movement. -: UN=Amputation, joint fusion; explain in comments. 6. Responses (right leg): 0 7. Limb Ataxia: With eyes open instruct patient to: -: a. "Touch your finger to your nose". -: b. "Touch your heel to your pandya" -: 0=Absent -: 1=Present in one limb. -: 2=Present in two limbs. -: UN=Amputation or joint fusion; explain in comments. 7. Responses: 1 7. If ataxia present choose as appropriate: Right arm 8. Sensory: Test sensation using pinprick or noxious stimuli. Test as many body parts as possible. -: 0=Normal;no sensory loss -: 1=Mile to moderate sensory loss (patient feels pin prick but is less sharp on affected side). -: 2=Severe or total sensory loss. 8. Responses: 0 9. Best Language: Instruct patient to: -: a. "Describe what you see in this picture." -: b. "Name the items in this picture." -: c. "Read these sentences." -: 0=No aphasia, normal -: 1=Mild to moderate aphasia. -: 2=Severe aphasia -: 3=Mute, global aphasia, no usable speech or auditory comprehension. 9. Responses: 2 10. Articulation, Dysarthia: Instruct patient to: -: "Read these words" or "Repeat these words" -: 0=Normal -: 1=Mild to moderate; patient may slur some words but can be understood without difficulty. -: 2=Severe; patients speech so slurred as to be unintelligible in the absence of dysphasia. -: UN=Intubated or other physical barrier, explain in comments. 10. Responses: 2 11. Extinction or inattention: 0=No abnormality -: 1= Visual, tactile, auditory, spatial, or personal inattention or extinction to bilateral simulation in one or the sensory modalities. -: 2=Profound indra-inattention or indra-inattention to more than one modality; does not recognize own hand. 11. Responses: 0 Total Score: 8 Discharge - Discharge Clinical Impression: Acute CVA (cerebrovascular accident) Condition: Stable Disposition: [facility] Referrals: TIM MINOR MD [Primary Care Provider] - Follow up as needed I personally performed the services described in the documentation, reviewed and edited the documentation which was dictated to the scribe in my presence, and it accurately records my words and actions.
--- NOTE | 2019-10-19 21:06 | EKG REPORT ---
SEVERITY:- ABNORMAL ECG - SINUS RHYTHM FIRST DEGREE AV BLOCK : Confirmed by: Kaylen Serrano MD 19-Oct-2019 21:05:36
== END 2019-10-19 10:00 | disposition short-term general hospital (02) ==
LOC: ER 08:13
DX: I63.9 Cerebral infarction, unspecified (principal); R47.01 Aphasia; R29.709 NIHSS score 9; Z87.891 Personal history of nicotine dependence; I10 Essential (primary) hypertension
CPT/HCPCS: 36415; 70450; 71045; 80053; 82550; 82553; 84484; 85025; 85610; 85730; 93005; 93010; 99291

== ENCOUNTER 2019-11-17 07:53 | Emergency (ER) | payer MEDICARE, OTHER ==
--- NOTE | 2019-11-17 08:33 | ER Document Report ---
ED Neuro Symptoms/Deficit - General Chief Complaint: Weakness Stated Complaint: WEAKNESS Time Seen by Provider: 11/17/19 08:09 Primary Care Provider: TIM MINOR MD [Primary Care Provider] - Follow up as needed Notes: Patient is a 79-year-old male who presents emergency department with right-sided weakness and slurred speech. states that the patient woke up not at his baseline. Patient has right-sided weakness, according to the . Patient has a history of a stroke on October 15. He was admitted here and then discharged. He was back the next day with difficulty breathing and then was transferred to [facility]. This past Monday, the patient was taken off his Eliquis. TRAVEL OUTSIDE OF THE [place] IN LAST 30 DAYS: No - Related Data Allergies/Adverse Reactions: No Known Allergies Allergy (Verified 11/13/18 09:18) Past Medical History - General Information source: Relative - Social History Smoking Status: Unknown if Ever Smoked Family History: Reviewed & Not Pertinent, Hypertension - Past Medical History Cardiac Medical History: Reports: Hx Atrial Fibrillation, Hx Hypercholesterolemia, Hx Hypertension - CONTROLLED/MEDICATED Denies: Hx Coronary Artery Disease, Hx Heart Attack Pulmonary Medical History: Denies: Hx Asthma, Hx Bronchitis, Hx COPD, Hx Pneumonia Neurological Medical History: Reports: Hx Cerebrovascular Accident. 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 Bilateral cataract repair.. Denies: Hx Open Heart Surgery, Hx Pacemaker - Immunizations Hx Diphtheria, Pertussis, Tetanus Vaccination: No - UNK Hx Pneumococcal Vaccination: 03/20/10 Review of Systems - Review of Systems -: Yes ROS unobtainable due to patient's medical condition Physical Exam - Notes Notes: PHYSICAL EXAMINATION: GENERAL: Appears chronically ill, no acute distress. HEAD: Normocephalic, atraumatic. EYES: PERRL, conjunctiva normal, all extraocular movements intact, sclera nonicteric SPEECH: Slurred/unintelligible. ENT: Moist mucous membranes. NECK: Supple, no noticeable swelling, redness, rash. Normal range of motion. LUNGS: Equal breath sounds bilaterally and clear to auscultation. No wheezes rales or rhonchi. CARDIOVASCULAR: S1-S2, regular rate, regular rhythm. Radial pulses 2+, normal. ABDOMEN: Normoactive bowel sounds. Soft, nontender, no guarding, no rebound tenderness, and no masses palpated. EXTREMITIES: Right-sided weakness. No cyanosis. NEUROLOGICAL: Moves all extremities upon command. Right-sided weakness. PSYCH: Normal mood, normal affect. SKIN: Warm, dry. No rash, lesions, ulcerations noted. Normal skin turgor. Course - Re-evaluation Re-evalutation: 11/17/19 08:36 is requesting that I speak with [facility], as he was there just a month ago. I called [facility] and he is on the board for possible transfer. 11/17/19 09:26 CT of the head did not show an intracranial bleed. I spoke to [facility] again. Awaiting callback from neurology. I then went to go clarify with the exactly when the last known well time was and the stated that the patient woke up his "normal post stroke self at 7:00 this morning. He walked to the bathroom with a walker. When he got up from the bathroom he stated, 'I'm a mess' and he had worsening right-sided weakness and facial droop." 11/17/19 09:[address] Herrera from [facility]. Patient will be accepted to the neuro floor. Since the patient's clarified that the patient woke up with his normal post stroke self. Dr. Marlow from neurology will be contacted again. Patient is currently in MRI. 11/17/19 10:00 Dr. Cee and I spoke with the . We reevaluated the patient and the patient's right arm strength is better than it was when I initially saw him. We have decided to hold off on TPA at this time. Patient will be air transported to [facility]. 11/17/19 10:24 I spoke with the radiologist here and was informed that the patient has new foci in the left SAP CONSULTANT territory and in an additional areas. I then called [facility] and updated the transfer center of these findings. - Laboratory Result Diagrams: 11/17/19 08:45 11/17/19 08:45 Critical Care Note - Critical Care Note Comments: Critical care time spent obtaining history from patient or surrogate, discussions with consultants, development of treatment plan with patient or surrogate, evaluation of patient's response to treatment, examination of patient, ordering and performing treatments and interventions, ordering and review of laboratory studies, re-evaluation of patient's condition, ordering and review of radiographic studies and review of old charts ED Alteplase Inc/Exc Criteria - Inclusion Criteria: 1: Patient presented to ED within 3 hours of acute ischemic stroke symptom onset? -: Yes 2: Did baseline CT exclude intracranial hemorrhage and/or other risk factors? -: Yes 3: Is the age of the patient 18 years of age or greater? -: Yes : If any of the above questions are answered "NO" then stop, patient is not a candidate for Alteplase, : If all of the above questions are answered "YES" then continue with Exclusion Criteria. - Exclusion Criteria: 1: Is there evidence of intracranial hemorrhage on baseline CT? -: No 2: Is there suspicion of subarachnoid hemorrhage (even if CT negative)? -: No 3: Is there a history of serious head trauma, recent previous stroke or GA within 3 months? -: Yes 4: Does the patient have a clinical presentation consistent with GA or post-GA pericarditis? -: No 5: Is there history of intracranial hemorrhage? -: No 6: On repeated measurement is Systolic BP greater than 185mmHg or Diastolic BP greater that 110 mmHg and is aggressive treatment needed to reduce blood press ure to these limits (e.g. constant infusion of an anti-hypertensive)? -: No 7: Did the patient awake with stroke symptoms? -: No 8: Has the patient had a lumbar puncture or an arterial puncture at a non- compressile site within 7 days? -: No 9: With in the last 14 days did the patient have surgery or major trauma? -: No 10: Is the patient or less than 2 weeks? -: No 11: Was there any active bleeding or acute trauma? -: No 12: Does the patient have intracranial neoplasm, arteriovenous malformation or aneurysm? -: No 13: Does the patient have abnormal glucose (less than 50 or greater than 400mg/dl)? Record glucose in Comment. -: No 14: Patient has rapidly improving symptoms at the time Alteplase is to be Administered. -: No 15: Does the patient have any risks for bleeding, including but not limited to: a.: Current use of Coumadin with PT greater than 15 seconds or INR greater than 1.7. b.: Current use of Pradaxa (Dabigatran). c.: Heparin administereed within the past 48 hours and PTT elevated. d.: Platelet count less than 100,000/mm. e.: Major surgery or serious trauma within 14 days. f.: Gastrointestinal or gynecological urinary bleeding within 14 days. g.: Myocardial Infarction (GA) within 3 months. -: No : If the answer to any of the above questions is "YES" then stop, the patie nt is not a candidate for Alteplase. : If the answer to all of the above questions is "NO" then the patient may be eligible for the Administration of Alteplase. : If the patient is noted to have seizure activity at onset of Stroke symptoms; Consult Neurologist for further evaluation. - The patient is: -: Included and is eligible to receive Alteplase. *Initiate bed placement at higher level of care* --: No Reviewed risks & benefits of thrombolytic therapy: I have reviewed the risks and benefits of thrombolytic therapy with the patient and/or his/her family. -: Excluded and not eligible to receive Alteplase for the above exclusions. -: Excluded and not eligible to receive Alteplase for other reasons (specify in comments): - Diagnosis of TIA: -: Patient presented with transient symptoms that are now resolved and no other neurologic findings are currently present. List symptoms in comments. -: Patient is NOT a candidate for tPA. -: ____(put name in comment) has been consulted for admission and continued evaluation of risk factor assessment. Discharge - Discharge Clinical Impression: Right sided weakness Stroke Qualifiers: CVA mechanism: unspecified Qualified Code(s): I63.9 - Cerebral infarction, unspecified Condition: Fair Disposition: [facility] Admitting Provider: Dr. Herrera Referrals: TIM MINOR MD [Primary Care Provider] - Follow up as needed
--- NOTE | 2019-11-17 08:52 | RADIOLOGY REPORT (SQ) ---
EXAM DESCRIPTION: CT HEAD WITHOUT IMAGES COMPLETED DATE/TIME: 11/17/2019 8:34 am REASON FOR STUDY: Right sided weakness; stroke alert COMPARISON: None. TECHNIQUE: Axial images acquired through the brain without intravenous contrast. Images reviewed wi th bone, brain and subdural windows. Additional sagittal and coronal reconstructions were generated. Images stored on PACS. All CT scanners at this facility use dose modulation, iterative reconstruction, and/or weight based d osing when appropriate to reduce radiation dose to as low as reasonably achievable (ALARA). [facility]: Dose Right [facility]: CareDose [facility]: Dose Right [facility]: Teradose 4D [facility]: Smart Issue RADIATION DOSE: CT Rad equipment meets quality standard of care and radiation dose reduction techniq ues were employed. CTDIvol: 53.2 mGy. DLP: 991 mGy-cm. mGy. LIMITATIONS: None. FINDINGS: VENTRICLES: Prominent. CEREBRUM: No masses. No hemorrhage. No midline shift. Areas of low density in the white matter mos t likely due to chronic micro-vascular ischemic change. No evidence for acute infarction. CEREBELLUM: No masses. No hemorrhage. No alteration of density. No evidence for acute infarction. EXTRAAXIAL SPACES: Mild age-related involutional change. No fluid collections. No masses. ORBITS AND GLOBE: No intra- or extraconal masses. Normal contour of globe without masses. CALVARIUM: No fracture. PARANASAL SINUSES: No fluid or mucosal thickening. SOFT TISSUES: No mass or hematoma. OTHER: No other significant finding. IMPRESSION: MILD CHRONIC CHANGES OF ATROPHY AND MICROVASCULAR ISCHEMIA. NO ACUTE PROCESS. EVIDENCE OF ACUTE STROKE: NO. COMMENT: Pertinent positive or negative findings of the imaging study reported as a CRITICAL EXAM clifford [facility] at08:45 on 11/17/2019. Category of Critical Exam: Stroke alert. TECHNICAL DOCUMENTATION: JOB ID: [id number] Quality ID # [id number]: Final reports with documentation of one or more dose reduction techniques (e.g., Au tomated exposure control, adjustment of the mA and/or kV according to patient size, use of iterative reconstruction technique) 2010 [employer]- All Rights Reserved Reading location - IP/workstation name: [email or web address]
--- NOTE | 2019-11-17 08:57 | RADIOLOGY REPORT (SQ) ---
EXAM DESCRIPTION: CHEST SINGLE VIEW IMAGES COMPLETED DATE/TIME: 11/17/2019 8:37 am REASON FOR STUDY: STROKE COMPARISON: 10/19/2019. EXAM PARAMETERS: NUMBER OF VIEWS: One view. TECHNIQUE: Single frontal radiographic view of the chest acquired. RADIATION DOSE: NA LIMITATIONS: None. FINDINGS: LUNGS AND PLEURA: No opacities, masses or pneumothorax. No pleural effusion. MEDIASTINUM AND HILAR STRUCTURES: No masses. Contour normal. HEART AND VASCULAR STRUCTURES: Heart normal in size. Normal vasculature. BONES: No acute findings. HARDWARE: None in the chest. OTHER: No other significant finding. IMPRESSION: NO ACUTE RADIOGRAPHIC FINDING IN THE CHEST. TECHNICAL DOCUMENTATION: JOB ID: [id number] 2010 [employer]- All Rights Reserved Reading location - IP/workstation name: [email or web address]
[2019-11-17 09:13] LABS: ABSOLUTE LYMPHOCYTES (AUTO) 0.9 10^3/uL (0.5-4.7); ABSOLUTE MONOCYTES (AUTO) 0.5 10^3/uL (0.1-1.4); ABSOLUTE NEUT (AUTO) 3.5 10^3/uL (1.7-8.2); BASOPHILS % (AUTO) 0.4 % (0-2); EOSINOPHILS % (AUTO) 0.9 % (0-6); HEMATOCRIT 50.1 % (37.9-51.0); HEMOGLOBIN 17.2 g/dL (13.5-17.0); LYMPHOCYTES % (AUTO) 18.4 % (13-45); MEAN CORPUSCULAR HEMOGLOBIN 29.2 pg (27.0-33.4); MEAN CORPUSCULAR HGB CONC 34.3 g/dL (32.0-36.0); MEAN CORPUSCULAR VOLUME 85 fl (80-97); MONOCYTES % (AUTO) 10.7 % (3-13); PLATELET COUNT 101 10^3/uL (150-450); RED CELL DISTRIBUTION WIDTH 14.8 % (11.5-14.0); SEGMENTED NEUTROPHILS % (AUTO) 69.6 % (42-78); TOTAL CELLS COUNTED % (AUTO) 100 %
[2019-11-17 09:21] LABS: ALBUMIN 4.2 g/dL (3.5-5.0); ALKALINE PHOSPHATASE 63 U/L (38-126); ANION GAP 8 (5-19); ASPARTATE AMINO TRANSFERASE 30 U/L (17-59); BILIRUBIN,DIRECT 0.3 mg/dL (0.0-0.4); BILIRUBIN,TOTAL 1.9 mg/dL (0.2-1.3); BLOOD UREA NITROGEN 18 mg/dL (7-20); CALCIUM 9.6 mg/dL (8.4-10.2); CARBON DIOXIDE 25 mmol/L (22-30); CHLORIDE 99 mmol/L (98-107); CREATINE KINASE 56 U/L (55-170); GLUCOSE 113 mg/dL (75-110); POTASSIUM 4.5 mmol/L (3.6-5.0)
[2019-11-17 09:22] LABS: INTERNATIONAL RATION (INR) 1.05
[2019-11-17 09:23] LABS: PARTIAL THROMBOPLASTIN TIME 31.8 SEC (23.5-35.8)
[2019-11-17 09:35] LABS: CREATINE KINASE MB 1.51 ng/mL (<4.55)
[2019-11-17 09:36] LABS: TROPONIN I < 0.012 ng/mL
--- NOTE | 2019-11-17 10:14 | ER Document Report ---
Doctor's Note Notes: 11/17/19 10:12 Has been discussed with Martha MORGAN. I went in and evaluated the patient and obtain information from his . states that 7 AM they woke up, patient then was able to ambulate to the restroom and when he came out of the restroom stated that he was feeling "messed up", this is how he refers to his condition. She was concerned that his known residual deficits were worse, she does report that he has had an up-and-down course, some days he seems worse, others he seems better. 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 He did not receive TPA during the initial stroke. On exam patient does have clear speech, does have some slight down turning of the right corner of the mouth which reports is chronic, his tongue protrudes midline. He is able to raise his right arm over his head and he a strong right hand grasp. He has been accepted in transfer to [facility]. I do not consider him to be a TPA candidate at this time given his exam and the timing.
--- NOTE | 2019-11-17 10:21 | ER Document Report ---
Doctor's Note Notes: 11/17/19 10:20 I received a call from radiology. MRI appears to have ischemia in the left posterior area. Will update accepting team.
[2019-11-17 10:23] VITALS: BP 147/79
--- NOTE | 2019-11-17 10:31 | RADIOLOGY REPORT (SQ) ---
EXAM DESCRIPTION: MRI HEAD WITHOUT IMAGES COMPLETED DATE/TIME: 11/17/2019 9:37 am REASON FOR STUDY: right sided weakness; stroke alert COMPARISON: MRI head 10/16/2019 TECHNIQUE: Multiplanar imaging includes non-contrasted T1, T2, FLAIR, and Diffusion with ADC map seq uences. Images stored on PACS. LIMITATIONS: None. FINDINGS: ANATOMY: No anomalies. Normal vascular flow voids. Pituitary fossa normal. CSF SPACES: Normal in size and contour. No hemorrhage. CEREBRUM: Moderate scattered high-signal intensity lesions throughout the white matter on FLAIR imagi ng with distribution suggesting chronic micro-vascular ischemic change. Sulci and gyri normal in siz e and contour. No evidence of hemorrhage, mass or extraaxial fluid collection. POSTERIOR FOSSA: No signal alteration. No hemorrhage. No edema, masses or mass effect. Internal amrita tory canals, cerebello-pontine angles, mastoids normal. DIFFUSION: There is increased area of restricted diffusion in the left anterior cerebral artery manda tory, precentral gyrus. There also new foci of true restricted diffusion predominantly in the left p osterior cerebral artery territory along the occipital horn of the left lateral ventricle. ORBITS: No masses. Globes normal. PARANASAL SINUSES: No fluid levels. Mucosa normal. OTHER: No other significant finding. 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 EVIDENCE OF ACUTE STROKE: YES. 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 COMMENT: Findings were discussed with Dr. Gonzalez in the emergency room via phone at 1021 hours 020. TECHNICAL DOCUMENTATION: JOB ID: [id number] 2010 [email or web address]- All Rights Reserved Reading location - IP/workstation name: [email or web address]
--- NOTE | 2019-11-17 10:31 | EKG REPORT ---
SEVERITY:- ABNORMAL ECG - SINUS RHYTHM FIRST DEGREE AV BLOCK : Confirmed by: Kaylen Serrano MD 17-Nov-2019 10:31:35
--- NOTE | 2019-11-17 10:48 | RADIOLOGY REPORT (SQ) ---
EXAM DESCRIPTION: CTA HEAD; CTA NECK IMAGES COMPLETED DATE/TIME: 11/17/2019 10:13 am; 11/17/2019 10:14 am REASON FOR STUDY: stroke symptoms COMPARISON: None. TECHNIQUE: Post IV contrast scanning, thin section axial imaging through the head and neck to evalua te the arterial structures. Source and MIP images are saved and reviewed on PACS. Advanced 3D imaging as volume-rendering, MIPs, SSD performed? yes All CT scanners at this facility use dose modulation, iterative reconstruction, and/or weight based d osing when appropriate to reduce radiation dose to as low as reasonably achievable (ALARA). [facility]: Dose Right [facility]: CareDose [facility]: Dose Right [facility]: Teradose 4D [facility]: Smart Technologies RENAL FUNCTION: BUN 18; creatinine 1.02 RADIATION DOSE: CT Rad equipment meets quality standard of care and radiation dose reduction techniq ues were employed. CTDIvol: 12.9 - 28.3 mGy. DLP: 529 mGy-cm. LIMITATIONS: None. FINDINGS: [place]: The anterior cerebral arteries are patent. There is a normal anterior c ommunicating artery. The right A1 segment is atretic. There is normal opacification of the right mi ddle cerebral artery including the M1, M2, and M3 divisions. The left A1 segment is normal. The lef t middle cerebral artery M1 segment and M2 segment are normally opacified. The left M3 segment is no t well opacified. There is a origin of the right posterior cerebral artery. The left posterio r cerebral artery originates from the basilar and is normal in appearance. No left posterior communi cating artery is seen. POSTERIOR CIRCULATION: The distal vertebral arteries are patent as is the basilar artery. No aneurysm . BRAIN: No gross enhancing lesions as visualized. The superior cerebral hemispheres are not included in the field of view. BONES: Intact as visualized. SINUSES: No fluid or mucosal thickening. OTHER: No other significant finding. AORTIC ARCH: Normal three-vessel origin. Bilateral subclavian arteries are patent. No dissection. RIGHT CAROTIDS: Patent common, internal and external carotid arteries without suggestion of significa nt stenosis. There is moderate atherosclerotic plaque at the carotid bulb. No dissection. RIGHT VERTEBRAL: Patent. No dissection. LEFT CAROTIDS: Patent common, internal and external carotid arteries without suggestion of significan t stenosis. There is moderate atherosclerotic plaque at the carotid bulb. No dissection. LEFT VERTEBRAL: Patent. No dissection. OTHER: 3-D reconstructions confirm findings. IMPRESSION: Poor opacification of the M3 segment of the left middle cerebral artery. This may be ch ronic, but could relate to some watershed territory insufficiency. Other normal variance in the intr acranial vasculature are described above. No dissection or aneurysm. No significant stenosis, dissection, or aneurysm of the extracranial carotid or vertebral arteries. COMMENT: Findings were discussed with Dr. Gonzalez in the emergency department via phone at 1040 hours 11/17/2019. TECHNICAL DOCUMENTATION: JOB ID: [id number] Quality ID # 436: Final reports with documentation of one or more dose reduction techniques (e.g., Au tomated exposure control, adjustment of the mA and/or kV according to patient size, use of iterative reconstruction technique) 2010 [employer]- All Rights Reserved Reading location - IP/workstation name: [email or web address]
== END 2019-11-17 10:21 | disposition short-term general hospital (02) ==
LOC: ER 07:53
DX: I63.9 Cerebral infarction, unspecified (principal); R53.1 Weakness; R29.810 Facial weakness; R47.81 Slurred speech; I48.91 Unspecified atrial fibrillation; E78.00 Pure hypercholesterolemia, unspecified; I10 Essential (primary) hypertension
CPT/HCPCS: 36415; 70450; 70496; 70498; 70551; 71045; 80053; 82550; 82553; 84484; 85025; 85610; 85730; 93005; 93010; 99285

== ENCOUNTER → 2020-03-19 | Outpatient (CLI) | payer MEDICARE, OTHER ==
[2020-03-19 13:08] VITALS: BP 108/62
--- NOTE | 2020-03-19 13:08 | ER RDC ASSESSMENT REPORT ---
Intake - In the Last 14 days Have you traveled outside [place]?: No Have you been in close contact with someone CONFIRMED: Yes Worked in Healthcare?: No - Symptoms Subjective Fever([place] feverish): Yes Chills: Yes Muscule Aches: No Runny Nose: No Sore Throat: Yes Cough (New or worsening chronic cough): Yes Shortness of breath: Yes Nausea or Vomiting: No Headache: No Abdominal Pain: No Diarrhea(3 or more loose stools in last 24 hours): No - Do you have any of the following Chronic lung disease: Asthma or emphysema or COPD: No Cystic Fibrosis: No Diabetes: No High Blood Pressure: Yes Cardiovascular Disease: Yes Chronic Kidney Disease: No Chronic Liver Disease: No Chronic blood disorder like Sickle Cell Disease: No Weak immune system due to disease or medication: No Neurologic condition that limits movement: No Developmental delay - Moderate to Severe: No Recent (within past 2 weeks) or current : No Morbid Obesity (>100 pounds over ideal weight): No Obesity Comment: Height 5 feet 7 inches weight 150 pounds Other Comment: Patient has history of CVA and aphasia. Patient is able to follow commands unable to speak. Son is power of ip technology transactions attorney and able to speak on patient's behalf. - Objective Temperature: 98.1 F Pulse Rate: 60 Respiratory Rate: 16 Blood Pressure: 108/62 O2 Sat by Pulse Oximetry: 95 Objective: Given above, testing performed: If Testing Performed: Test Specimen Type Sent to General - General Information source: Patient, POA - Power of Lpn Instructor Notes: Patient here at [facility] for Covid testing son speaking on behalf of patient who has dysphagia as a result of CVA. Patient's son states and had exposure to friend who has tested positive patient has presented with symptoms in the last few days and include fever chills sore throat cough shortness of breath. Patient's PCP is Dr. Helio Rosario and was not able to get up with him today son reports was thinking maybe he needed a chest x-ray. Patient will continue to follow-up with PCP later today. - Related Data Allergies/Adverse Reactions: No Known Allergies Allergy (Verified 11/13/18 09:18) Past Medical History - General Information source: Patient, POA - Power of Lpn Instructor - Social History Smoking Status: Never Smoker Family History: Reviewed & Not Pertinent, Hypertension - Past Medical History Cardiac Medical History: Reports: Hx Atrial Fibrillation, Hx Hypercholesterolemia, Hx Hypertension - CONTROLLED/MEDICATED Denies: Hx Coronary Artery Disease, Hx Heart Attack Pulmonary Medical History: Denies: Hx Asthma, Hx Bronchitis, Hx COPD, Hx Pneumonia Neurological Medical History: Reports: Hx Cerebrovascular Accident. 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 Bilateral cataract repair.. Denies: Hx Open Heart Surgery, Hx Pacemaker Physical Exam - General General appearance: Appears well, Alert In distress: None Notes: PHYSICAL EXAMINATION: GENERAL: Well-appearing and in no acute distress. HEAD: Atraumatic, normocephalic. EYES: sclera anicteric, conjunctiva are normal. ENT: nares patent. Moist mucous membranes. NECK: Normal range of motion, supple without lymphadenopathy LUNGS: CTAB and equal. No wheezes rales or rhonchi. Respirations even and unlabored lung sounds clear. HEART: Regular rate and rhythm without murmurs ABDOMEN: Soft, nontender, normal bowel sounds, no guarding. EXTREMITIES: Normal range of motion, no pitting edema. No cyanosis. NEUROLOGICAL: Cranial nerves grossly intact. aphasia. PSYCH: Normal mood, normal affect. SKIN: Warm, Dry, normal turgor, no rashes or lesions noted Diagnostic Results Laboratory Results: Pending strep culture. Pending Covid testing results. Patient and son provided instructions regarding Covid to include: As a person under investigation for Covid 19, the [place] department of Health and Human Services, division of public health advises you to adhere to the following guidance until your test results are reported to you. If your test result is positive, you will receive additional information from your provider and your local health department at that time. Remain at home until you are cleared by the health provider or public health authorities. Keep a log of visitors to your home, notify any visitors to your home of your isolation status. If you plan to move to a new address or leave the [facility], notify the local health department in your County. Call your doctor or seek care if you have an urgent medical need. Before seeking medical care, call ahead to get instructions from the provider before arriving at the medical office clinic or hospital. Notify them that you are being tested for the virus that causes Covid 19 so that arrangements can be made, as necessary, to prevent transmission to others in the healthcare setting. Next, notify the local health department in your county. If a medical emergency arises and you need to call 911, inform the first responders that you are being tested for the virus that causes Covid 19. Next, notify the local health department in your county. Patient Education/Counseling Counseling/Education: Patient presents with upper respiratory symptoms worrisome for possible Covid 19. Patient does not have emergency worring symptoms such as difficulty breathing, shortness of breath, chest pain, pressure, confusion or cyanosis. Patient appears suitable for discharge. Patient and son instructed to follow-up with PCP today. To ED for persistent or worsening symptoms. Patient's vital signs are stable and patient is nontoxic in appearance. Good return precautions have been discussed with patient, patient verbalized understanding and is agreeable with discharge plan of care at this time. RDC Discharge - Discharge Clinical Impression: Encounter for screening laboratory testing for COVID-19 virus Upper respiratory infection Qualifiers: URI type: unspecified URI Qualified Code(s): J06.9 - Acute upper respiratory infection, unspecified Condition: Stable Disposition: Home; Selfcare
[2020-03-19 13:46] LABS: A TYPE INFLUENZA AG NEGATIVE (NEGATIVE); B INFLUENZA AG NEGATIVE (NEGATIVE)
== END ==
LOC: RDC 11:19
PROVIDERS: ATTEND Nurse Practitioner Family
DX: U07.1 COVID-19 (principal); J06.9 Acute upper respiratory infection, unspecified; R50.9 Fever, unspecified; R05 Cough; J02.9 Acute pharyngitis, unspecified; R06.02 Shortness of breath; I10 Essential (primary) hypertension; E78.00 Pure hypercholesterolemia, unspecified; I69.920 Aphasia following unspecified cerebrovascular disease; Z85.828 Personal history of other malignant neoplasm of skin
CPT/HCPCS: 87070; 87880; 87804; U0003; C9803; 87635; 99201; 99211

== ENCOUNTER 2020-03-23 11:22 | Emergency (ER) | payer MEDICARE, OTHER ==
[2020-03-23 12:52] LABS: ALBUMIN 2.9 g/dL (3.5-5.0); ALKALINE PHOSPHATASE 70 U/L (38-126); ANION GAP 5 (5-19); ASPARTATE AMINO TRANSFERASE 34 U/L (17-59); BILIRUBIN,DIRECT 0.2 mg/dL (0.0-0.4); BILIRUBIN,TOTAL 0.8 mg/dL (0.2-1.3); BLOOD UREA NITROGEN 13 mg/dL (7-20); CALCIUM 8.7 mg/dL (8.4-10.2); CARBON DIOXIDE 24 mmol/L (22-30); CHLORIDE 103 mmol/L (98-107); GLUCOSE 109 mg/dL (75-110); POTASSIUM 4.1 mmol/L (3.6-5.0); TOTAL PROTEIN 5.7 g/dL (6.3-8.2)
[2020-03-23 12:54] LABS: ALCOHOL < 10 mg/dL (NONE DETECTED)
[2020-03-23] MEDS ORDERED: NORMAL SALINE 1000 ML 1,000 ML IV ONE (12:55)
[2020-03-23] MEDS ORDERED: LORAZEPAM INJ 2 MG/1 ML VIAL IV ONE ×2 (12:56→17:47)
[2020-03-23 13:09] LABS: INTERNATIONAL RATION (INR) 1.08; PROTHROMBIN TIME 14.2 SEC (11.4-15.4)
[2020-03-23 13:12] LABS: D-DIMER 1.38 ug/mL (0.00-0.50)
[2020-03-23 13:22] LABS: NT PRO BNP 62 pg/mL (<450)
[2020-03-23 13:23] LABS: TROPONIN I < 0.012 ng/mL
--- NOTE | 2020-03-23 13:40 | RADIOLOGY REPORT (SQ) ---
EXAM DESCRIPTION: CHEST SINGLE VIEW IMAGES COMPLETED DATE/TIME: 03/23/2020 1:31 pm REASON FOR STUDY: AMS/ COVID POSITIVE COMPARISON: 11/17/2019 EXAM PARAMETERS: NUMBER OF VIEWS: One view. TECHNIQUE: Single frontal radiographic view of the chest acquired. RADIATION DOSE: NA LIMITATIONS: None. FINDINGS: LUNGS AND PLEURA: No opacities, masses or pneumothorax. No pleural effusion. MEDIASTINUM AND HILAR STRUCTURES: No masses. Contour normal. HEART AND VASCULAR STRUCTURES: Heart normal in size. Normal vasculature. BONES: No acute findings. HARDWARE: Loop recorder overlies the left hemithorax. OTHER: No other significant finding. IMPRESSION: NO ACUTE RADIOGRAPHIC FINDING IN THE CHEST. TECHNICAL DOCUMENTATION: JOB ID: [id number] 2010 [employer]- All Rights Reserved Reading location - IP/workstation name: [email or web address]
--- NOTE | 2020-03-23 14:48 | EKG REPORT ---
SEVERITY:- ABNORMAL ECG - SINUS RHYTHM FIRST DEGREE AV BLOCK PROBABLE LEFT ATRIAL ABNORMALITY : Confirmed by: Alesha Meier 23-Mar-2020 14:47:51
--- NOTE | 2020-03-23 15:54 | RADIOLOGY REPORT (SQ) ---
EXAM DESCRIPTION: CTA CHEST IMAGES COMPLETED DATE/TIME: 03/23/2020 3:40 pm REASON FOR STUDY: sobr/covid positive COMPARISON: None. TECHNIQUE: CT scan of the chest performed using helical scanning technique with dynamic intravenous contrast injection. Images reviewed with lung, soft tissue and bone windows. Reconstructed coronal and sagittal MPR images reviewed. Additional 3 dimensional post-processing performed to develop Maximal Intensity Projection images (OK P). All images stored on PACS. All CT scanners at this facility use dose modulation, iterative reconstruction, and/or weight based d osing when appropriate to reduce radiation dose to as low as reasonably achievable (ALARA). [facility]: Dose Right [facility]: CareDose [facility]: Dose Right [facility]: Teradose 4D [facility]: [employer] CONTRAST TYPE AND DOSE: contrast/concentration: Isovue 350.00 mmol/ml; Total Contrast Delivered: 65. 0 ml; Total Saline Delivered: 80.0 ml Contrast bolus optimized for the pulmonary arteries. Not diagnostic for the aorta. RENAL FUNCTION: BUN 13, creatinine 0.72 RADIATION DOSE: CT Rad equipment meets quality standard of care and radiation dose reduction techniq ues were employed. CTDIvol: 11.3 - 14.2 mGy. DLP: 564 mGy-cm. . LIMITATIONS: None. FINDINGS: LUNGS AND PLEURA: Minimal basilar airspace disease most consistent with atelectasis. No f ocal consolidation. No effusions. AORTA AND GREAT VESSELS: No aneurysm. Contrast bolus not optimized for the aorta. HEART: No pericardial effusion. Moderate coronary artery calcification. PULMONARY ARTERIES: No emboli visualized in the main pulmonary arteries or the segmental branches. HILAR AND MEDIASTINAL STRUCTURES: No identified masses or abnormal nodes. HARDWARE: None in the chest. UPPER ABDOMEN: No significant findings. Limited exam. THYROID AND OTHER SOFT TISSUES: No masses. No adenopathy. BONES: No acute or significant finding. 3D MIPS: Confirm above findings. OTHER: No other significant finding. IMPRESSION: Basilar airspace disease most consistent with atelectasis. No pulmonary emboli. COMMENT: Quality ID # 436: Final reports with documentation of one or more dose reduction techniques (e.g., Automated exposure control, adjustment of the mA and/or kV according to patient size, use of iterative reconstruction technique) TECHNICAL DOCUMENTATION: JOB ID: [id number] [employer]- All Rights Reserved Reading location - IP/workstation name: [email or web address]
--- NOTE | 2020-03-23 16:43 | RADIOLOGY REPORT (SQ) ---
EXAM DESCRIPTION: CT HEAD WITHOUT IMAGES COMPLETED DATE/TIME: 03/23/2020 4:33 pm REASON FOR STUDY: altered mental status COMPARISON: MRI BRAIN DATED 11/17/2019 TECHNIQUE: Axial images acquired through the brain without intravenous contrast. Images reviewed wi th bone, brain and subdural windows. Additional sagittal and coronal reconstructions were generated. Images stored on PACS. All CT scanners at this facility use dose modulation, iterative reconstruction, and/or weight based d osing when appropriate to reduce radiation dose to as low as reasonably achievable (ALARA). [facility]: Dose Right [facility]: CareDose [facility]: Dose Right [facility]: Teradose 4D [facility]: [employer] RADIATION DOSE: CT Rad equipment meets quality standard of care and radiation dose reduction techniq ues were employed. CTDIvol: 53.2 mGy. DLP: 1017 mGy-cm. mGy. LIMITATIONS: None. FINDINGS: VENTRICLES: Stable in size and configuration. CEREBRUM: Numerous periventricular and subcortical white matter lesions consistent with small vessel disease. Large area of encephalomalacia in the left posterior frontal and parietal lobe consistent wi th infarct which has a ball from prior exam. There is decreased attenuation in the left upper lobe. Suspect this is chronic as well related to you have and in October but correlation with MRI is recomm ended. It has possible the patient is extending the infarct. No focal mass or intracranial hemorrha ge. CEREBELLUM: No masses. No hemorrhage. No alteration of density. No evidence for acute infarction. EXTRAAXIAL SPACES: No fluid collections. No masses. ORBITS AND GLOBE: No intra- or extraconal masses. Normal contour of globe without masses. CALVARIUM: No fracture. PARANASAL SINUSES: No fluid or mucosal thickening. SOFT TISSUES: No mass or hematoma. OTHER: High attenuation within the vascular structures is most likely related to recent CTA of the est. IMPRESSION: Large left MCA infarct as discussed. Recommend MRI to exclude acute extension. Scatter ed periventricular and subcortical white matter changes consistent with chronic small vessel disease. EVIDENCE OF ACUTE STROKE: NO. COMMENT: Quality ID # 436: Final reports with documentation of one or more dose reduction techniques (e.g., Automated exposure control, adjustment of the mA and/or kV according to patient size, use of iterative reconstruction technique) TECHNICAL DOCUMENTATION: JOB ID: [id number] 2010 [employer]- All Rights Reserved Reading location - IP/workstation name: [email or web address]
[2020-03-23 16:59] LABS: ABSOLUTE LYMPHOCYTES (AUTO) 0.8 10^3/uL (0.5-4.7); ABSOLUTE MONOCYTES (AUTO) 0.4 10^3/uL (0.1-1.4); ABSOLUTE NEUT (AUTO) 0.9 10^3/uL (1.7-8.2); BASOPHILS % (AUTO) 0.8 % (0-2); EOSINOPHILS % (AUTO) 0.4 % (0-6); HEMATOCRIT 44.2 % (37.9-51.0); HEMOGLOBIN 15.4 g/dL (13.5-17.0); LYMPHOCYTES % (AUTO) 37.2 % (13-45); MEAN CORPUSCULAR HEMOGLOBIN 28.5 pg (27.0-33.4); MEAN CORPUSCULAR HGB CONC 34.8 g/dL (32.0-36.0); MEAN CORPUSCULAR VOLUME 82 fl (80-97); MONOCYTES % (AUTO) 19.8 % (3-13); RED BLOOD COUNT 5.41 10^6/uL (4.35-5.55); RED CELL DISTRIBUTION WIDTH 14.2 % (11.5-14.0); SEGMENTED NEUTROPHILS % (AUTO) 41.8 % (42-78); TOTAL CELLS COUNTED % (AUTO) 100 %; WHITE BLOOD COUNT 2.2 10^3/uL (4.0-10.5)
[2020-03-23 18:10] LABS: APPEARANCE,URINE CLEAR; BILIRUBIN,URINE NEGATIVE (NEGATIVE); COLOR,URINE YELLOW; GLUCOSE, URINE NEGATIVE (NEGATIVE); KETONES,URINE NEGATIVE (NEGATIVE); LEUKOCYTE ESTERASE,URINE NEGATIVE (NEGATIVE); NITRITE,URINE NEGATIVE (NEGATIVE); PROTEIN,URINE NEGATIVE (NEGATIVE); URINE SPECIFIC GRAVITY 1.011; UROBILINOGEN,URINE NEGATIVE mg/dL (<2.0)
[2020-03-23 18:27] LABS: URINE AMPHETAMINES SCREEN NEGATIVE; URINE BARBITURATES SCREEN NEGATIVE; URINE BENZODIAZEPINES SCREEN UNCONFIRMED POSITIVE; URINE COCAINE SCREEN NEGATIVE; URINE MARIJUANA (THC) SCREEN NEGATIVE; URINE METHADONE SCREEN NEGATIVE; URINE PHENCYCLIDINE SCREEN NEGATIVE
--- NOTE | 2020-03-23 18:57 | RADIOLOGY REPORT (SQ) ---
EXAM DESCRIPTION: MRI HEAD WITHOUT IMAGES COMPLETED DATE/TIME: 03/23/2020 6:40 pm REASON FOR STUDY: ams/ CThead with MCA territory infarct COMPARISON: MR 11/17/2019 CT 03/23/2020 TECHNIQUE: Multiplanar imaging includes non-contrasted T1, T2, FLAIR, and diffusion with ADC map seq uences. Images stored on PACS. LIMITATIONS: None. FINDINGS: ANATOMY: No anomalies. Normal vascular flow voids. Pituitary fossa normal. CSF SPACES: Normal in size and contour. No hemorrhage. CEREBRUM: Sulci and gyri normal in size and contour. Normal white matter signal on FLAIR imaging. Ol d left MCA infarction. No evidence of hemorrhage, mass, or extraaxial fluid collection. POSTERIOR FOSSA: No signal alteration. No hemorrhage. No edema, masses or mass effect. Internal amrita tory canals, cerebello-pontine angles, mastoids normal. DIFFUSION IMAGING: There are couple of tiny areas of abnormally restricted diffusion in the left post erior parietal area. ORBITS: No masses. Globes normal. PARANASAL SINUSES: No fluid levels. Mucosa normal. OTHER: No other significant finding. IMPRESSION: There are a couple of tiny embolic infarctions in the left posterior parietal lobe. The re is an old left middle cerebral artery infarction. EVIDENCE OF ACUTE STROKE: NO. Yes COMMENT: Pertinent findings on the imaging study reported as a CRITICAL RESULT to STAR FLANNERY MD at18:51 on 03/23/2020. Category of Critical Result: Infarctions. TECHNICAL DOCUMENTATION: JOB ID: [id number] 2010 [employer]- All Rights Reserved Reading location - IP/workstation name: [email or web address]
--- NOTE | 2020-03-23 18:59 | ER Document Report ---
Entered by FRANCINE ANAYA SCRIBE 03/23/20 1234 Acting as scribe for:STAR FLANNERY MD ED General - General Mode of Arrival: Medic Information source: Emergency Med Personnel Cannot obtain history due to: Altered mental status TRAVEL OUTSIDE OF THE [place] 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 Per EMS, family reports that the patient has been more altered than usual with increased confusion and aggression for the last x2 days along with diarrhea. Per OM records, patient tested positive for COVID on 03/19 at the [facility]. Nursing reports that the patient became combative with EMS, so they administered Versed 2.5 mg IM. Patient is unable to provide any reasonable history and responds with "I don't know" for every question, therefore, HPI is limited and ROS is unobtainable. 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 Bilateral cataract repair. - Immunizations Hx Diphtheria, Pertussis, Tetanus Vaccination: No - UNK Hx Pneumococcal Vaccination: 03/20/10 <STAR FLANNERY - Last Filed: 03/23/20 20:58> Review of Systems - Review of Systems -: Yes ROS unobtainable due to patient's medical condition - Altered mental status <STAR FLANNERY - Last Filed: 03/23/20 20:58> Physical Exam - General General appearance: Combative, Other - Appears ill with moderate to severe confusion and agitation In distress: None - HEENT Head: Normocephalic, Atraumatic Eyes: Normal Extraocular movements intact: Yes Pupils: PERRL Pharynx: Normal. No: Erythema Neck: Normal, Supple - Respiratory Respiratory status: No respiratory distress, Tachypnea, Other - 99% O2 sats on room air Chest status: Nontender Breath sounds: Normal Chest palpation: Normal - Cardiovascular Rhythm: Regular Heart sounds: Normal auscultation Murmur: No - Abdominal Inspection: Normal Distension: No distension Bowel sounds: Normal Tenderness: Nontender - Abdomen soft Organomegaly: No organomegaly - Back Back: Normal, Nontender - Extremities General upper extremity: Normal inspection General lower extremity: Normal inspection. No: Edema - Neurological Cognition: Confused Alina Coma Scale Eye Opening: Spontaneous Alina Coma Scale Verbal: Confused Alina Coma Scale Motor: Obeys Commands Alina Coma Scale Total: 14 Cranial nerves: Other - Patient opens his mouth when asked to smile Additional motor exam normals: Other - Patient is able to lift and hold left lower leg up for about 4 seconds before it drifts down. He can barely lift the right lower leg.. No: Equal detective private eye - Right hand detective private eye is 1+, Left hand is 4+ - Psychological Associated symptoms: Agitated, Combative, Confused - Skin Skin Temperature: Warm Skin Moisture: Dry Skin Color: Normal <STAR FLANNERY - Last Filed: 03/23/20 20:58> - Vital signs Vitals: Pulse Ox 96 03/23/20 11:24 Course - Laboratory Results Result Diagrams: 03/23/20 16:14 03/23/20 11:38 Critical Laboratory Results Reviewed: Yes Attending or Supervising Physician who Reviewed Labs: STAR FLANNERY - Elevated D-dimer and a white blood cell count of 2.2 - Radiology Results Critical Radiology Results Reviewed: Yes Attending or Supervising Physician who Reviewed Radiology: STAR FLANNERY - Evidence of an acute stroke with tiny embolic emboli infarcts noted in the left parietal posterior lobe region. <STAR FLANNERY - Last Filed: 03/23/20 20:58> - Laboratory Results Result Diagrams: 03/23/20 16:14 03/23/20 11:38 <RONNELL BONE - Last Filed: 03/24/20 16:07> - Re-evaluation Re-evalutation: 03/23/20 13:37 After IV lorazepam 1 mg patient is resting more comfortable at this time allowing staff to complete her tasks and working him up at this time. 03/23/20 19:45 Patient resting comfortably in room at this time blood pressure is 135/61 heart rate nontachycardic and patient not showing any signs of distress. Patient has been medicated for the MRI/MRA exam that he has had so that he would remain still so the prevent motion artifact. 03/23/20 20:52 Discussed with patient son Anirudh Crouch telephone #[phone]. We discussed the work-up that has been done today on his dad which did not disclose that patient has COVID-19 positive test (U07.1, COVID-19) with Acute Pneumonia (J12.89, Other viral pneumonia) (If respiratory failure or sepsis present, add as separate assessment) . Patient is seriously ill inasmuch as he has Covid pneumonia at age 79 in the last couple of days he has been becoming weaker and agitated and somewhat uncooperative on arrival in our department. Required medication to sedate patient in order to do the work-up to determine what the condition and what the problems are. Patient has had a new stroke but these are tiny lacunar type infarcts in the left posterior parietal lobe. There is no new significant finding in terms of neurological deficit other than what patient currently has which is right-sided weakness and speech impediment. Patient also is significantly depressed of his life condition at this time and the fact that his recently of Covid 19 and lung cancer. Patient lives with his son who takes care of him on a daily basis and his son Mr. Darien Ledezma noted that his dad was worsening since the COVID-19 diagnosis 3 days ago. I presented his that his case to the hospitalist for admission to the hospital and patient did not meet inpatient criteria therefore patient was not admitted to the hospital. Again discussed with Mr. Anirudh Ledezma regarding his that did not meet criteria to be admitted to the hospital and there was really no strong indication that he needed to be transferred to any other hospital. I recommended that we could put his that on a social hold if he was unable to come pick his that up and take him home Mr. Anirudh Ledezma stated that he preferred not to come and take his that home but not and have to bring him right back if there is a problem recommend that if we could find a way to observe him overnight and that reassessment in the morning with some case management input for what they are future nursing needs may be would be a better plan. I discussed this with our event marketing assistant medical cash poster Dr. Barker and she agreed that patient could be placed in a social hold position in the emergency department and we we consult case management and have a discussion in the morning regarding disposition of patient and returning home with nursing support if indicated. (STAR FLANNERY) - Vital Signs Vital signs: Temp Pulse Resp BP Pulse Ox 97.6 F 57 L 20 127/75 H 92 03/23/20 12:15 03/24/20 09:00 03/24/20 14:01 03/24/20 14:01 03/24/20 14:01 - Laboratory Results Laboratory Results Interpreted: 03/23/20 03/23/20 03/23/20 11:38 11:38 16:14 WBC 2.2 L RDW 14.2 H [place] % (Auto) 19.8 H Absolute Neuts (auto) 0.9 L Seg Neutrophils % 41.8 L D-Dimer 1.38 H Sodium 131.5 L Total Protein 5.7 L Albumin 2.9 L Laboratories significant for a D-dimer of 1.38 and a white blood cell count of 2.2 03/23/20 19:36 Labs- Entire Visit 03/23/20 03/23/20 03/23/20 11:38 11:38 11:38 WBC Cancelled RBC Cancelled Hgb Cancelled Hct Cancelled MCV Cancelled MCH Cancelled MCHC Cancelled RDW Cancelled Plt Count Cancelled Lymph % (Auto) Cancelled [place] % (Auto) Cancelled Eos % (Auto) Cancelled Baso % (Auto) Cancelled Absolute Neuts (auto) Cancelled Absolute Lymphs (auto) Cancelled Absolute Monos (auto) Cancelled Absolute Eos (auto) Cancelled Absolute Basos (auto) Cancelled Seg Neutrophils % Cancelled Platelet Estimate Cancelled PT 14.2 INR 1.08 D-Dimer 1.38 H Sodium 131.5 L Potassium 4.1 Chloride 103 Carbon Dioxide 24 Anion Gap 5 BUN 13 Creatinine 0.72 Est GFR ( Amer) > 60 Est GFR (MDRD) Non-Af > 60 Glucose 109 Lactic Acid Calcium 8.7 Magnesium 1.7 Total Bilirubin 0.8 Direct Bilirubin 0.2 Neonat Total Bilirubin Not Reportable Neonat Direct Bilirubin Not Reportable Neonat Indirect Bili Not Reportable AST 34 ALT 42 Alkaline Phosphatase 70 Troponin I NT-Pro-B Natriuret Pep Total Protein 5.7 L Albumin 2.9 L Urine Color Urine Appearance Urine pH Ur Specific [place] Urine Protein Urine Glucose (UA) Urine Ketones Urine Blood Urine Nitrite Urine Bilirubin Urine Urobilinogen Ur Leukocyte Esterase Urine WBC (Auto) Urine RBC (Auto) Urine Mucus (Auto) Urine Ascorbic Acid Urine Opiates Screen Urine Methadone Screen Ur Barbiturates Screen Ur Phencyclidine Scrn Ur Amphetamines Screen U Benzodiazepines Scrn Urine Cocaine Screen U Marijuana (THC) Screen Serum Alcohol < 10 Slides for Path Review Cancelled 03/23/20 03/23/20 03/23/20 11:38 13:57 13:57 WBC Cancelled RBC Cancelled Hgb Cancelled Hct Cancelled MCV Cancelled MCH Cancelled MCHC Cancelled RDW Cancelled Plt Count Cancelled Lymph % (Auto) Cancelled [place] % (Auto) Cancelled Eos % (Auto) Cancelled Baso % (Auto) Cancelled Absolute Neuts (auto) Cancelled Absolute Lymphs (auto) Cancelled Absolute Monos (auto) Cancelled Absolute Eos (auto) Cancelled Absolute Basos (auto) Cancelled Seg Neutrophils % Cancelled Platelet Estimate Cancelled PT INR D-Dimer Sodium Potassium Chloride Carbon Dioxide Anion Gap BUN Creatinine Est GFR ( Amer) Est GFR (MDRD) Non-Af Glucose Lactic Acid 1.1 Calcium Magnesium Total Bilirubin Direct Bilirubin Neonat Total Bilirubin Neonat Direct Bilirubin Neonat Indirect Bili AST ALT Alkaline Phosphatase Troponin I < 0.012 NT-Pro-B Natriuret Pep 62 Total Protein Albumin Urine Color Urine Appearance Urine pH Ur Specific [place] Urine Protein Urine Glucose (UA) Urine Ketones Urine Blood Urine Nitrite Urine Bilirubin Urine Urobilinogen Ur Leukocyte Esterase Urine WBC (Auto) Urine RBC (Auto) Urine Mucus (Auto) Urine Ascorbic Acid Urine Opiates Screen Urine Methadone Screen Ur Barbiturates Screen Ur Phencyclidine Scrn Ur Amphetamines Screen U Benzodiazepines Scrn Urine Cocaine Screen U Marijuana (THC) Screen Serum Alcohol Slides for Path Review Cancelled 03/23/20 03/23/20 03/23/20 16:14 17:40 17:40 WBC 2.2 L RBC 5.41 Hgb 15.4 Hct 44.2 MCV 82 MCH 28.5 MCHC 34.8 RDW 14.2 H Plt Count Lymph % (Auto) 37.2 Simpson % (Auto) 19.8 H Eos % (Auto) 0.4 Baso % (Auto) 0.8 Absolute Neuts (auto) 0.9 L Absolute Lymphs (auto) 0.8 Absolute Monos (auto) 0.4 Absolute Eos (auto) 0.0 Absolute Basos (auto) 0.0 Seg Neutrophils % 41.8 L Platelet Estimate PT INR D-Dimer Sodium Potassium Chloride Carbon Dioxide Anion Gap BUN Creatinine Est GFR ( Amer) Est GFR (MDRD) Non-Af Glucose Lactic Acid Calcium Magnesium Total Bilirubin Direct Bilirubin Neonat Total Bilirubin Neonat Direct Bilirubin Neonat Indirect Bili AST ALT Alkaline Phosphatase Troponin I NT-Pro-B Natriuret Pep Total Protein Albumin Urine Color YELLOW Urine Appearance CLEAR Urine pH 7.0 Ur Specific [place] 1.011 Urine Protein NEGATIVE Urine Glucose (UA) NEGATIVE Urine Ketones NEGATIVE Urine Blood NEGATIVE Urine Nitrite NEGATIVE Urine Bilirubin NEGATIVE Urine Urobilinogen NEGATIVE Ur Leukocyte Esterase NEGATIVE Urine WBC (Auto) 0 Urine RBC (Auto) 1 Urine Mucus (Auto) RARE Urine Ascorbic Acid NEGATIVE Urine Opiates Screen NEGATIVE Urine Methadone Screen NEGATIVE Ur Barbiturates Screen NEGATIVE Ur Phencyclidine Scrn NEGATIVE Ur Amphetamines Screen NEGATIVE U Benzodiazepines Scrn UNCONFIRMED POSITIVE Urine Cocaine Screen NEGATIVE U Marijuana (THC) Screen NEGATIVE Serum Alcohol Slides for Path Review (STAR FLANNERY) - Radiology Results Radiology Results Interpreted: 03/23/20 13:37 Chest x-ray single view portable shows bibasilar infiltrates which may be related to his COVID-19 status. 03/23/20 19:38 Chest X-Ray 03/23/20 12:58 IMPRESSION: NO ACUTE RADIOGRAPHIC FINDING IN THE CHEST. Chest/Abdomen CTA 03/23/20 14:18 IMPRESSION: Basilar airspace disease most consistent with atelectasis. No pulmonary emboli. Head CT 03/23/20 16:02 IMPRESSION: Large left MCA infarct as discussed. Recommend MRI to exclude acute extension. Scattered periventricular and subcortical white matter changes consistent with chronic small vessel disease. EVIDENCE OF ACUTE STROKE: NO. Head MRI 03/23/20 17:14 IMPRESSION: There are a couple of tiny embolic infarctions in the left posterior parietal lobe. There is an old left middle cerebral artery infarction. EVIDENCE OF ACUTE STROKE: NO. Yes Brain MRI with MRA 03/23/20 17:17 IMPRESSION: Absence versus occlusion of the A1 segment on the right with a patent anterior communicating artery. The vessels of the [place] are otherwise unremarkable. Head CT shows large MCA infarct that is old. MRI recommended. Scattered changes of chronic small vessel disease evidence of acute stroke no. Head MRI scan shows tiny embolic infarctions in the left posterior parietal lobe. old left middle cerebral cerebral artery territory infarction evidence of acute stroke yes of the left posterior part parietal lobe. Brain MRI with MRA shows absence versus occlusion of A1 segment of the right with a patent anterior communicating artery otherwise the vessels of the [place] are unremarkable Chest CT scan shows no evidence of pulmonary emboli and atelectasis otherwise no acute process Chest x-ray shows no acute process. (STAR FLANNERY) - EKG Interpretation by Me Additional EKG results interpreted by me: 03/23/20 13:38 Twelve-lead EKG shows sinus bradycardia rate of 51 normal axis artifact present noted on this EKG [place] interval is prolonged at 2.8 QRS within normal range no evidence for STEMI .probable left atrial abnormality QT interval within normal range (STAR FLANNERY) Discharge <STAR FLANNERY - Last Filed: 03/23/20 20:58> <RONNELL BONE - Last Filed: 03/24/20 16:07> - Discharge Clinical Impression: Lab test positive for detection of COVID-19 virus, Altered mental status, Leukopenia, CVA (cerebral vascular accident) Condition: Stable Instructions: COVID-19 Guidance for Persons Under Investigation Additional Instructions: Please follow-up with your family doctor. Make sure you are staying hydrated. Please return to the ER immediately for any worsening symptoms such as shortness of breath, fever, any other concerning signs. Referrals: TIM MINOR MD [Primary Care Provider] - Follow up in 3-5 days ED NIH Stroke Scale I personally performed the services described in the documentation, reviewed and edited the documentation which was dictated to the scribe in my presence, and it accurately records my words and actions.
--- NOTE | 2020-03-23 19:00 | RADIOLOGY REPORT (SQ) ---
EXAM DESCRIPTION: MRA HEAD WITHOUT IMAGES COMPLETED DATE/TIME: 03/23/2020 6:40 pm REASON FOR STUDY: AMS / Large MCA territory infarct on CT head COMPARISON: MRI 11/17/2019 MRI 03/23/2020 TECHNIQUE: Axial 3-D [id number] acquisition imaging performed through the brain in the area of t he [place]. Images reformatted using 3-D MIPS. LIMITATIONS: None. FINDINGS: SOURCE IMAGES: No unexpected findings on source images. No large masses. 3-D MIP: There is apparent absence or occlusion of the A1 segment on the right with patent anterior c ommunicating artery. OTHER: No other significant finding. IMPRESSION: Absence versus occlusion of the A1 segment on the right with a patent anterior communica ting artery. The vessels of the [place] are otherwise unremarkable. TECHNICAL DOCUMENTATION: JOB ID: [id number] 2010 [employer]- All Rights Reserved Reading location - IP/workstation name: [email or web address]
[2020-03-23] MEDS ORDERED: LORAZEPAM INJ 2 MG/1 ML VIAL IV PRN (20:44)
[2020-03-23] MEDS ORDERED: ATORVASTATIN CALCIUM 40 MG TABLET PO SCH (20:45)
[2020-03-23] MEDS ORDERED: HYDROCHLOROTHIAZIDE 12.5 MG TABLET PO SCH (20:45)
[2020-03-23] MEDS ORDERED: LISINOPRIL 10 MG TABLET PO SCH (20:45)
[2020-03-23] MEDS ORDERED: CLOPIDOGREL BISULFATE 75 MG TABLET PO SCH (20:45)
[2020-03-23] MEDS ORDERED: DEXTROSE 5%-1/2 NORMAL SALINE 1,000 ML IV ONE (20:46)
[2020-03-23] MEDS ORDERED: ASPIRIN 81 MG TABLET, ENT COATED PO SCH (21:00)
[2020-03-23] MEDS ORDERED: DILTIAZEM HCL 180 MG CAPSULE.CR PO SCH (21:00)
--- NOTE | 2020-03-24 14:53 | ER Document Report ---
Doctor's Note Notes: 03/24/20 14:51 Patient is a social hold. I rounded on him this morning. Patient is awake and alert. His vitals are stable. From reports, patient has COVID-19 as well as a new small stroke on top of an older previous stroke. From record review, patient was evaluated by the hospitalist. He did not believe he needed adm ission for this as he is already medically optimized. Family wanted to know if they could have any other resources for him at home. Social work is currently working on home health. On exam, patient is awake. He is alert. Vitals are within normal limits. He is on room air. Clear lung sounds bilaterally. Abdomen is soft. Moves all extremities. Some residual right-sided weakness is noted which is chronic. Patient has expressive aphasia which I am told is not new and has been there his whole ER stay and from his old stroke. Social work discussed with family. They will pick him up. They have optimized his outpatient treatment and home health care. Patient will be discharged with strict return precautions. His vitals are normal at discharge. 03/24/20 19:40
[2020-03-24] MEDS ORDERED: LORAZEPAM INJ 2 MG/1 ML VIAL IV ONE (14:54)
[2020-03-24 17:26] VITALS: BP 108/78
== END 2020-03-24 17:28 | disposition home or self-care (01) ==
LOC: ER 11:22
DX: U07.1 COVID-19 (principal); J12.89 Other viral pneumonia; D72.819 Decreased white blood cell count, unspecified; I63.9 Cerebral infarction, unspecified; R41.0 Disorientation, unspecified; I10 Essential (primary) hypertension
CPT/HCPCS: 93005; 96376; 99285; 96361 ×2; 96374; 36415; 87040; 80307 ×2; 83605; 83735; 85025; 85610; 80053; 81001; 84484; 85379; 83880; 70551; 70544; 71045; 70450; 71275; 93010; J2060 ×2; J7030